=== PATIENT | male | born 1940 | race Caucasian/White ===

== ENCOUNTER → 2017-01-22 | Outpatient (CLI) | payer MEDICARE, OTHER ==
[2017-01-22 13:02] LABS: ANION GAP 13 (5-19); BLOOD UREA NITROGEN 19 mg/dL (7-20); CALCIUM 9.8 mg/dL (8.4-10.2); CARBON DIOXIDE 23 mmol/L (22-30); CHLORIDE 101 mmol/L (98-107); CREATININE RESULT 0.88 mg/dL (0.52-1.25); GLUCOSE 125 mg/dL (75-110); POTASSIUM 4.4 mmol/L (3.6-5.0); SODIUM 137.4 mmol/L (137-145)
[2017-01-22 13:36] LABS: APPEARANCE,URINE CLEAR; BILIRUBIN,URINE NEGATIVE (NEGATIVE); GLUCOSE, URINE NEGATIVE (NEGATIVE); KETONES,URINE NEGATIVE (NEGATIVE)
[2017-01-22 13:37] LABS: LEUKOCYTE ESTERASE,URINE NEGATIVE (NEGATIVE); NITRITE,URINE NEGATIVE (NEGATIVE); PROTEIN,URINE NEGATIVE (NEGATIVE); URINE SPECIFIC GRAVITY 1.005; UROBILINOGEN,URINE NEGATIVE mg/dL (<2.0)
[2017-01-22 13:41] LABS: RBC,URINE 0-1 /HPF; WBC,URINE 0-1 /HPF
[2017-01-23 11:38] LABS: CREATININE URINE 30.3 mg/dL (Not Estab.)
== END ==
LOC: OD 11:36
PROVIDERS: ATTEND Internal Medicine Nephrology
DX: R80.9 Proteinuria, unspecified (principal); E11.9 Type 2 diabetes mellitus without complications; I10 Essential (primary) hypertension
CPT/HCPCS: 36415; 80048; 81001; 82570; 84156

== ENCOUNTER 2017-05-03 10:53 | Day surgery (SDC) | payer MEDICARE, OTHER ==
[~2017-05-03 10:53] MED LIST: PROPOFOL INJ 200 MG/20 ML VIAL IV ONE
[2017-05-03 12:48] VITALS: BP 116/89
--- NOTE | 2017-05-03 14:44 | Operative Report ---
Operative Report DATE OF SURGERY: 05/03/17 Operative Report: The risks, benefits and alternatives are discussed with the patient in detail including the risk of bleeding , perforation requiring surgery, are explained to the patient in detail and informed consent is obtained Time out is called and Propofol is provided patient is taken back to the endoscopy suite A rectal exam is done which did not show any masses or fissures an olympus videoscope is inserted into patient's rectum and carefully guided to the cecum the cecum is identified by the ileocecal valve and appendiceal orifice the scope is then carefully withdrawn, patient had a good prep and photodocumentation is obtained the various segments of the colon including the ascending colon, hepatic flexure , transverse colon, splenic flexure, descending colon and into the rectosigmoid portions of the colon retroflexion is performed PREOPERATIVE DIAGNOSIS: colorectal cancer screening POSTOPERATIVE DIAGNOSIS: diverticulosis. Internal hemorrhoids. sessile polyp in the descending colon polyp, s/p attempted snare polypectomy but ended up being ablated in situ. no tissue is retrieved OPERATION: Colonoscopy with snare polypectomy SURGEON: DARCY FATIMA ANESTHESIA: LMAC TISSUE REMOVED OR ALTERED: none retrived COMPLICATIONS: none ESTIMATED BLOOD LOSS: none INTRAOPERATIVE FINDINGS: as noted above PROCEDURE: Patient tolerated the procedure well no post procedure complications patient is discharged in good condition discharge date 05/03/17 Discharge diet : regular Discharge activity: regular 2-3 week follow up to discuss findings 5 year surveillance colonoscopy patient is instructed to call the office or proceed to the ED if there are any issues or concerns
== END 2017-05-03 12:55 | disposition home or self-care (01) ==
LOC: END 10:53
PROVIDERS: ATTEND Internal Medicine Gastroenterology
PROC: 0DBH8ZX Excision of Cecum, Via Natural or Artificial Opening Endoscopic, Diagnostic (ICD-10-PCS; principal; 2017-05-03 13:30)
DX: Z12.11 Encounter for screening for malignant neoplasm of colon (principal); K57.30 Diverticulosis of large intestine without perforation or abscess without bleeding; K64.8 Other hemorrhoids; D12.4 Benign neoplasm of descending colon; I10 Essential (primary) hypertension; E11.9 Type 2 diabetes mellitus without complications; Z79.899 Other long term (current) drug therapy; Z79.84 Long term (current) use of oral hypoglycemic drugs
CPT/HCPCS: 45385; 82962; J2704; 810

== ENCOUNTER → 2017-07-07 | Outpatient (CLI) | payer MEDICARE, OTHER ==
[2017-07-07 16:45] LABS: HEMOGLOBIN 17.3 g/dL (13.5-17.0); HGB HCT DIFFERENCE -0.1; MEAN CORPUSCULAR HEMOGLOBIN 29.3 pg (27.0-33.4); MEAN CORPUSCULAR HGB CONC 33.3 g/dL (32.0-36.0); MEAN CORPUSCULAR VOLUME 88 fl (80-97); WHITE BLOOD COUNT 11.4 10^3/uL (4.0-10.5)
[2017-07-09 10:18] LABS: PROSTATE SPECIFIC ANTIGEN 0.5 ng/mL (0.0-4.0); PSA FREE 0.14 ng/mL
== END ==
LOC: OD 15:28
PROVIDERS: ATTEND Urology
DX: E29.1 Testicular hypofunction (principal); N52.9 Male erectile dysfunction, unspecified
CPT/HCPCS: 36415; 84154; 84402; 84403; 85027

== ENCOUNTER → 2017-07-20 | Outpatient (CLI) | payer MEDICARE, OTHER ==
[2017-07-20 15:25] LABS: APPEARANCE,URINE CLEAR; BILIRUBIN,URINE NEGATIVE (NEGATIVE); GLUCOSE, URINE NEGATIVE (NEGATIVE); KETONES,URINE NEGATIVE (NEGATIVE); LEUKOCYTE ESTERASE,URINE NEGATIVE (NEGATIVE); NITRITE,URINE NEGATIVE (NEGATIVE); PROTEIN,URINE 30 mg/dL (NEGATIVE); URINE SPECIFIC GRAVITY 1.004; UROBILINOGEN,URINE NEGATIVE mg/dL (<2.0)
[2017-07-20 15:54] LABS: ANION GAP 13 (5-19); BLOOD UREA NITROGEN 17 mg/dL (7-20); CALCIUM 9.8 mg/dL (8.4-10.2); CARBON DIOXIDE 27 mmol/L (22-30); CHLORIDE 100 mmol/L (98-107); CREATININE RESULT 1.01 mg/dL (0.52-1.25); GLUCOSE 136 mg/dL (75-110); POTASSIUM 4.9 mmol/L (3.6-5.0); SODIUM 140.2 mmol/L (137-145)
[2017-07-20 16:35] LABS: URINE CREATININE 37.6 mg/dL (22-328); URINE PROTEIN 39.3 mg/dL (<12)
== END ==
LOC: OD 13:46
PROVIDERS: ATTEND Internal Medicine Nephrology
DX: R80.9 Proteinuria, unspecified (principal); E11.9 Type 2 diabetes mellitus without complications; I10 Essential (primary) hypertension
CPT/HCPCS: 36415; 80048; 81001; 82570; 84156

== ENCOUNTER → 2017-11-24 | Outpatient (CLI) | payer MEDICARE, OTHER ==
[2017-11-24 15:36] LABS: APPEARANCE,URINE CLEAR; BILIRUBIN,URINE NEGATIVE (NEGATIVE); COLOR,URINE YELLOW; GLUCOSE, URINE NEGATIVE (NEGATIVE); KETONES,URINE NEGATIVE (NEGATIVE); LEUKOCYTE ESTERASE,URINE NEGATIVE (NEGATIVE); NITRITE,URINE NEGATIVE (NEGATIVE); PROTEIN,URINE 100 mg/dL (NEGATIVE); URINE SPECIFIC GRAVITY 1.023; UROBILINOGEN,URINE NEGATIVE mg/dL (<2.0)
[2017-11-24 15:49] LABS: ANION GAP 13 (5-19); BLOOD UREA NITROGEN 23 mg/dL (7-20); CALCIUM 10.2 mg/dL (8.4-10.2); CARBON DIOXIDE 27 mmol/L (22-30); CHLORIDE 102 mmol/L (98-107); GLUCOSE 110 mg/dL (75-110); POTASSIUM 4.6 mmol/L (3.6-5.0); SODIUM 142.3 mmol/L (137-145)
[2017-11-24 15:56] LABS: UR PRO/CREAT RATIO RESULT 0.7 mg/mg (0.0-0.2); URINE CREATININE 151.7 mg/dL (22-328); URINE PROTEIN 106.6 mg/dL (<12)
== END ==
LOC: OD 14:45
PROVIDERS: ATTEND Internal Medicine Nephrology
DX: I10 Essential (primary) hypertension (principal); E11.9 Type 2 diabetes mellitus without complications; R80.9 Proteinuria, unspecified
CPT/HCPCS: 36415; 80048; 81001; 82570; 84156

== ENCOUNTER → 2018-06-17 | Outpatient (CLI) | payer MEDICARE, OTHER ==
[2018-06-17 15:57] LABS: HEMATOCRIT 49.1 % (37.9-51.0); HEMOGLOBIN 16.8 g/dL (13.5-17.0); MEAN CORPUSCULAR HEMOGLOBIN 29.5 pg (27.0-33.4); MEAN CORPUSCULAR HGB CONC 34.2 g/dL (32.0-36.0); MEAN CORPUSCULAR VOLUME 86 fl (80-97); PLATELET COUNT 355 10^3/uL (150-450); RED BLOOD COUNT 5.69 10^6/uL (4.35-5.55); RED CELL DISTRIBUTION WIDTH 13.6 % (11.5-14.0); WHITE BLOOD COUNT 10.7 10^3/uL (4.0-10.5)
[2018-06-17 16:13] LABS: APPEARANCE,URINE SLIGHTLY-CLOUDY; BILIRUBIN,URINE NEGATIVE (NEGATIVE); COLOR,URINE YELLOW; GLUCOSE, URINE NEGATIVE (NEGATIVE); KETONES,URINE NEGATIVE (NEGATIVE); LEUKOCYTE ESTERASE,URINE TRACE (NEGATIVE); NITRITE,URINE NEGATIVE (NEGATIVE); PROTEIN,URINE 100 mg/dL (NEGATIVE)
[2018-06-17 16:17] LABS: ANION GAP 13 (5-19); BLOOD UREA NITROGEN 20 mg/dL (7-20); CALCIUM 9.6 mg/dL (8.4-10.2); CARBON DIOXIDE 27 mmol/L (22-30); CHLORIDE 105 mmol/L (98-107); GLUCOSE 137 mg/dL (75-110); POTASSIUM 4.8 mmol/L (3.6-5.0); SODIUM 144.7 mmol/L (137-145); UR PRO/CREAT RATIO RESULT 0.3 mg/mg (0.0-0.2); URINE CREATININE 180.1 mg/dL (22-328); URINE PROTEIN 56.5 mg/dL (<12)
== END ==
LOC: OD 14:59
PROVIDERS: ATTEND Internal Medicine Nephrology
DX: R80.9 Proteinuria, unspecified (principal); E11.9 Type 2 diabetes mellitus without complications; N18.2 Chronic kidney disease, stage 2 (mild)
CPT/HCPCS: 36415; 80048; 81001; 82570; 84156; 85027

== ENCOUNTER → 2018-12-22 | Outpatient (CLI) | payer MEDICARE, OTHER ==
[2018-12-22 13:03] LABS: HEMATOCRIT 51.2 % (37.9-51.0); HEMOGLOBIN 17.6 g/dL (13.5-17.0); MEAN CORPUSCULAR HEMOGLOBIN 29.4 pg (27.0-33.4); MEAN CORPUSCULAR HGB CONC 34.3 g/dL (32.0-36.0); MEAN CORPUSCULAR VOLUME 86 fl (80-97); PLATELET COUNT 364 10^3/uL (150-450); RED BLOOD COUNT 5.99 10^6/uL (4.35-5.55); RED CELL DISTRIBUTION WIDTH 14.9 % (11.5-14.0); WHITE BLOOD COUNT 10.2 10^3/uL (4.0-10.5)
[2018-12-22 13:11] LABS: APPEARANCE,URINE SLIGHTLY-CLOUDY; BILIRUBIN,URINE NEGATIVE (NEGATIVE); COLOR,URINE YELLOW; GLUCOSE, URINE NEGATIVE (NEGATIVE); KETONES,URINE NEGATIVE (NEGATIVE); LEUKOCYTE ESTERASE,URINE TRACE (NEGATIVE); NITRITE,URINE NEGATIVE (NEGATIVE); PROTEIN,URINE 100 mg/dL (NEGATIVE); URINE SPECIFIC GRAVITY 1.023
[2018-12-22 13:23] LABS: ANION GAP 9 (5-19); BLOOD UREA NITROGEN 19 mg/dL (7-20); CALCIUM 9.6 mg/dL (8.4-10.2); CARBON DIOXIDE 29 mmol/L (22-30); CHLORIDE 102 mmol/L (98-107); GLUCOSE 132 mg/dL (75-110); POTASSIUM 5.2 mmol/L (3.6-5.0); SODIUM 140.4 mmol/L (137-145); URIC ACID 6.4 mg/dL (3.5-8.5)
== END ==
LOC: OD 12:24
PROVIDERS: ATTEND Internal Medicine Nephrology
DX: E11.9 Type 2 diabetes mellitus without complications (principal); R80.9 Proteinuria, unspecified; M10.00 Idiopathic gout, unspecified site; I10 Essential (primary) hypertension
CPT/HCPCS: 36415; 80048; 81001; 84550; 85027

== ENCOUNTER → 2019-06-12 | Outpatient (CLI) | payer MEDICARE, OTHER ==
[2019-06-12 14:23] LABS: HEMATOCRIT 48.7 % (37.9-51.0); HEMOGLOBIN 16.5 g/dL (13.5-17.0); MEAN CORPUSCULAR HEMOGLOBIN 28.9 pg (27.0-33.4); MEAN CORPUSCULAR HGB CONC 33.9 g/dL (32.0-36.0); MEAN CORPUSCULAR VOLUME 85 fl (80-97); PLATELET COUNT 318 10^3/uL (150-450); RED BLOOD COUNT 5.71 10^6/uL (4.35-5.55); RED CELL DISTRIBUTION WIDTH 14.5 % (11.5-14.0); WHITE BLOOD COUNT 10.6 10^3/uL (4.0-10.5)
[2019-06-12 14:32] LABS: APPEARANCE,URINE CLEAR; BILIRUBIN,URINE NEGATIVE (NEGATIVE); COLOR,URINE YELLOW; GLUCOSE, URINE NEGATIVE (NEGATIVE); KETONES,URINE NEGATIVE (NEGATIVE); LEUKOCYTE ESTERASE,URINE NEGATIVE (NEGATIVE); NITRITE,URINE NEGATIVE (NEGATIVE); PROTEIN,URINE 100 mg/dL (NEGATIVE); URINE SPECIFIC GRAVITY 1.018; UROBILINOGEN,URINE NEGATIVE mg/dL (<2.0)
[2019-06-12 14:44] LABS: ANION GAP 9 (5-19); BLOOD UREA NITROGEN 17 mg/dL (7-20); CALCIUM 9.5 mg/dL (8.4-10.2); CARBON DIOXIDE 28 mmol/L (22-30); CHLORIDE 103 mmol/L (98-107); GLUCOSE 133 mg/dL (75-110); POTASSIUM 5.1 mmol/L (3.6-5.0); SODIUM 139.5 mmol/L (137-145)
[2019-06-12 15:11] LABS: UR PRO/CREAT RATIO RESULT 0.5 mg/mg (0.0-0.2); URINE CREATININE 99.2 mg/dL (22-328); URINE PROTEIN 52.2 mg/dL (<12)
== END ==
LOC: OD 13:33
PROVIDERS: ATTEND Internal Medicine Nephrology
DX: E11.9 Type 2 diabetes mellitus without complications (principal); R80.9 Proteinuria, unspecified; M10.00 Idiopathic gout, unspecified site
CPT/HCPCS: 36415; 80048; 81001; 82570; 84156; 85027

== ENCOUNTER → 2020-01-04 | Outpatient (CLI) | payer MEDICARE, OTHER ==
[2020-01-04 11:40] LABS: ABSOLUTE BASOPHILS # (AUTO) 0.1 10^3/uL (0.0-0.2); ABSOLUTE EOSINOPHILS # (AUTO) 0.5 10^3/uL (0.0-0.6); ABSOLUTE LYMPHOCYTES (AUTO) 1.8 10^3/uL (0.5-4.7); ABSOLUTE MONOCYTES (AUTO) 1.4 10^3/uL (0.1-1.4); ABSOLUTE NEUT (AUTO) 8.6 10^3/uL (1.7-8.2); BASOPHILS % (AUTO) 0.6 % (0-2); EOSINOPHILS % (AUTO) 4.1 % (0-6); HEMATOCRIT 48.4 % (37.9-51.0); HEMOGLOBIN 16.2 g/dL (13.5-17.0); LYMPHOCYTES % (AUTO) 14.8 % (13-45); MEAN CORPUSCULAR HEMOGLOBIN 28.7 pg (27.0-33.4); MEAN CORPUSCULAR HGB CONC 33.5 g/dL (32.0-36.0); MEAN CORPUSCULAR VOLUME 86 fl (80-97); MONOCYTES % (AUTO) 11.5 % (3-13); PLATELET COUNT 423 10^3/uL (150-450); RED BLOOD COUNT 5.65 10^6/uL (4.35-5.55); RED CELL DISTRIBUTION WIDTH 13.7 % (11.5-14.0); TOTAL CELLS COUNTED % (AUTO) 100 %; WHITE BLOOD COUNT 12.4 10^3/uL (4.0-10.5)
[2020-01-04 11:47] LABS: APPEARANCE,URINE CLEAR; BILIRUBIN,URINE NEGATIVE (NEGATIVE); COLOR,URINE YELLOW; GLUCOSE, URINE NEGATIVE (NEGATIVE); KETONES,URINE NEGATIVE (NEGATIVE); LEUKOCYTE ESTERASE,URINE NEGATIVE (NEGATIVE); NITRITE,URINE NEGATIVE (NEGATIVE); PROTEIN,URINE 100 mg/dL (NEGATIVE); URINE SPECIFIC GRAVITY 1.019; UROBILINOGEN,URINE NEGATIVE mg/dL (<2.0)
[2020-01-04 12:01] LABS: ALBUMIN 4.4 g/dL (3.5-5.0); ANION GAP 11 (5-19); BLOOD UREA NITROGEN 18 mg/dL (7-20); CALCIUM 9.8 mg/dL (8.4-10.2); CARBON DIOXIDE 29 mmol/L (22-30); CHLORIDE 99 mmol/L (98-107); GLUCOSE 179 mg/dL (75-110); PHOSPHORUS 3.2 mg/dL (2.5-4.5); POTASSIUM 4.9 mmol/L (3.6-5.0)
[2020-01-04 12:24] LABS: UR PRO/CREAT RATIO RESULT 0.3 mg/mg (0.0-0.2); URINE CREATININE 198.6 mg/dL (22-328); URINE PROTEIN 67.9 mg/dL (<12)
== END ==
LOC: OD 10:39
PROVIDERS: ATTEND Internal Medicine Nephrology
DX: R80.9 Proteinuria, unspecified (principal); E11.9 Type 2 diabetes mellitus without complications; I10 Essential (primary) hypertension
CPT/HCPCS: 36415; 80069; 81001; 82570; 84156; 85025

== ENCOUNTER 2020-02-05 01:36 | Inpatient (IN) | payer MEDICARE, OTHER ==
[2020-02-05 01:57] LABS: ABSOLUTE EOSINOPHILS # (AUTO) 0.2 10^3/uL (0.0-0.6); ABSOLUTE MONOCYTES (AUTO) 2.2 10^3/uL (0.1-1.4); BASOPHILS % (AUTO) 0.2 % (0-2); EOSINOPHILS % (AUTO) 0.9 % (0-6); HEMATOCRIT 43.6 % (37.9-51.0); HEMOGLOBIN 14.5 g/dL (13.5-17.0); LYMPHOCYTES % (AUTO) 5.1 % (13-45); MEAN CORPUSCULAR HEMOGLOBIN 28.4 pg (27.0-33.4); MEAN CORPUSCULAR HGB CONC 33.2 g/dL (32.0-36.0); MEAN CORPUSCULAR VOLUME 86 fl (80-97); MONOCYTES % (AUTO) 11.5 % (3-13); PLATELET COUNT 496 10^3/uL (150-450); RED BLOOD COUNT 5.09 10^6/uL (4.35-5.55); RED CELL DISTRIBUTION WIDTH 13.6 % (11.5-14.0); SEGMENTED NEUTROPHILS % (AUTO) 82.3 % (42-78); TOTAL CELLS COUNTED % (AUTO) 100 %; WHITE BLOOD COUNT 19.4 10^3/uL (4.0-10.5)
[2020-02-05] MEDS ORDERED: IPRATROPIUM/ALBUTEROL 0.5-2.5 MG/3 ML AMPUL NEB ONE ×2 (02:04→04:01)
[2020-02-05] MEDS ORDERED: METHYLPREDNISOLONE INJ 125 MG/2 ML SDV IV ONE (02:04)
[2020-02-05] MEDS ORDERED: CEFEPIME 2 GM/D5W RTU 2 GM/50 ML RTUPB IV ONE (02:05)
[2020-02-05] MEDS ORDERED: NORMAL SALINE 1000 ML 1,000 ML IV ONE (02:10)
[2020-02-05 02:13] LABS: ALBUMIN 3.7 g/dL (3.5-5.0); ALKALINE PHOSPHATASE 101 U/L (38-126); ANION GAP 12 (5-19); ASPARTATE AMINO TRANSFERASE 24 U/L (17-59); BILIRUBIN,DIRECT 0.4 mg/dL (0.0-0.4); BILIRUBIN,TOTAL 0.4 mg/dL (0.2-1.3); BLOOD UREA NITROGEN 27 mg/dL (7-20); CALCIUM 9.1 mg/dL (8.4-10.2); CARBON DIOXIDE 25 mmol/L (22-30); CHLORIDE 100 mmol/L (98-107); GLUCOSE 248 mg/dL (75-110); POTASSIUM 4.6 mmol/L (3.6-5.0); TOTAL PROTEIN 7.3 g/dL (6.3-8.2)
[2020-02-05 02:25] LABS: NT PRO BNP 81 pg/mL (<450)
[2020-02-05 02:26] LABS: TROPONIN I < 0.012 ng/mL
--- NOTE | 2020-02-05 02:28 | ER Document Report ---
ED Respiratory Problem - General Chief Complaint: Respiratory Distress Stated Complaint: DIFFICULTY BREATHING Time Seen by Provider: 02/05/20 01:58 Notes: Patient is a 79-year-old male that comes emergency department for chief complaint of difficulty breathing and cough. Patient comes by EMS, oxygen saturation was initially 90% on room air with respiratory distress and respirations in the 40s, patient refused CPAP initially. Patient is not on oxygen at home. Patient states this has been going on for several days but became worse tonight. He saw his primary care provider, was prescribed azithromycin, completed this, but still worsened tonight. Patient is unsure of fever. He states he is vaccinated for influenza and pneumonia. He denies history of COPD, asthma, or CHF. He has a history of hypertension, borderline diabetes, and is on reportedly Xanax and Flexeril/Baclofen. He denies smoking. He states that he took both Xanax and 1 of the muscle relaxers tonight, he is not sure which. TRAVEL OUTSIDE OF THE [place] IN LAST 30 DAYS: No - Related Data Allergies/Adverse Reactions: amoxicillin Allergy (Verified 02/05/20 04:34) hydrocodone [Hydrocodone] Adverse Reaction (Verified 05/03/17 11:10) Vomiting Nitrate Analogues Adverse Reaction (Verified 02/05/20 02:18) Home Medications: Xanax. Flexeril. Zithromax (finished). Losartan. Zofran. Baclofen. Amlodipine. Viagra Past Medical History - General Information source: Patient - Social History Smoking Status: Never Smoker Drug Abuse: None Lives with: Spouse/Significant other Family History: Reviewed & Not Pertinent Patient has suicidal ideation: No Patient has homicidal ideation: No - Past Medical History Cardiac Medical History: Reports: Hx Hypertension Denies: Hx Coronary Artery Disease, Hx Heart Attack Pulmonary Medical History: Reports: Hx Pneumonia Denies: Hx Asthma, Hx Bronchitis, Hx COPD Neurological Medical History: Denies: Hx Cerebrovascular Accident, Hx Seizures Endocrine Medical History: Reports: Hx Diabetes Mellitus Type 2 Musculoskeletal Medical History: Reports Hx Arthritis Past Surgical History: Reports: Hx Oral Surgery, Hx Tonsillectomy - Immunizations Hx Diphtheria, Pertussis, Tetanus Vaccination: Yes Review of Systems - Review of Systems Constitutional: See HPI EENT: No symptoms reported Cardiovascular: No symptoms reported Respiratory: See HPI Gastrointestinal: No symptoms reported Genitourinary: No symptoms reported Male Genitourinary: No symptoms reported Musculoskeletal: No symptoms reported Skin: No symptoms reported Hematologic/Lymphatic: No symptoms reported Neurological/Psychological: No symptoms reported Physical Exam - Vital signs Vitals: Resp BP Pulse Ox 29 H 129/70 H 86 L 02/05/20 01:39 02/05/20 01:39 02/05/20 01:39 - Notes Notes: GENERAL: Patient ill-appearing, flushed, appears drowsy, obvious respiratory distress HEAD: Normocephalic, atraumatic. EYES: Pupils equal, round, and reactive to light. Extraocular movements intact. ENT: Oral mucosa moist, tongue midline. Oropharynx unremarkable. Airway patent. LUNGS: Scattered rhonchi and decreased breath sounds, frequent painful cough, very labored breathing with retractions and notable tachypnea. Respiratory distress. HEART: Tachycardia, normal rhythm, no murmur ABDOMEN: Soft, non-tender. Non-distended. Diastases recti. EXTREMITIES: Moves all 4 extremities spontaneously. No edema, normal radial and dorsalis pedis pulses bilaterally. No cyanosis. BACK: no cervical, thoracic, lumbar midline tenderness. No saddle anesthesia, normal distal neurovascular exam. Moves all extremities in full range of motion. NEUROLOGICAL: Slightly drowsy but still oriented and cooperative. Normal speech. Cranial nerves II through XII grossly intact. PSYCH: Intermittently becomes mildly anxious but otherwise unremarkable SKIN: Flushed Course - Re-evaluation Re-evalutation: Patient with oxygen saturation of 90%, respiratory distress with accessory muscle use and labored breathing, decreased breath sounds and scattered rhonchi, respiratory rate of 45. Patient was placed initially on oxygen, I discussed with patient, he did agree to BiPAP. Given DuoNeb, IV fluids, he will be started on antibiotics for suspected pneumonia, work-up pending, he will be closely reevaluated. Patient reevaluated, breathing is relaxed, he is much more comfortable, oxygen saturation is normal, respiratory rate is now 26. Oxygen saturation 95%. He is not tachycardic anymore, blood pressure is unremarkable. CBC shows leukocytosis with elevation of neutrophils but no bandemia. Chemistry nonspecific with hyperglycemia but no acidosis. Venous blood gas is unremarkable. Chest x-ray low lung volumes but no obvious infection. Troponin and BNP are unremarkable. Patient attempted to get up to urinate and took off the BiPAP, patient immediately desaturated down to the 80s. We replaced the BiPAP and assisted him. Discussed work-up with patient, we will discuss with hospitalist for admission for suspected pneumonia, hypoxia, acute respiratory distress requiring BiPAP. Patient states understanding and agreement. 02/05/[address] Tatum, patient accepted to the [facility] full admission. - Vital Signs Vital signs: Temp Pulse Resp BP Pulse Ox 97.3 F 46 H 118/60 93 02/05/20 05:08 02/05/20 05:57 02/05/20 05:08 02/05/20 05:57 - Laboratory Result Diagrams: 02/05/20 01:40 02/05/20 01:40 Laboratory results interpreted by me: 02/05/20 02/05/20 02/05/20 01:40 01:40 03:40 WBC 19.4 H Plt Count 496 H Lymph % (Auto) 5.1 L Absolute Neuts (auto) 16.0 H Absolute Monos (auto) 2.2 H Seg Neutrophils % 82.3 H BUN 27 H Glucose 248 H Urine Protein 30 H Urine Glucose (UA) >=500 H Discharge - Discharge Clinical Impression: Respiratory distress, Cough, Hypoxia Leukocytosis Qualifiers: Leukocytosis type: unspecified Qualified Code(s): D72.829 - Elevated white blood cell count, unspecified Condition: Stable Disposition: ADMITTED INPATIENT Admitting Provider: Rc (Hospitalist) Unit Admitted: [facility]
--- NOTE | 2020-02-05 02:28 | RADIOLOGY REPORT (SQ) ---
EXAM DESCRIPTION: XR CHEST 1 VIEW COMPLETED DATE/TME: 02/05/2020 01:49 CLINICAL HISTORY: cough, shortness of breath COMPARISON: 03/01/1950 FINDINGS: Single frontal view of the chest. Cardiomediastinal silhouette: Atherosclerotic calcification of the thoracic aorta. Heart is not enlarged. Lungs: No consolidation, pneumothorax, or pleural effusion. Low lung volumes. Elevation the right hemidiaphragm. Bones: Degenerative change of the spine and shoulders. Leads overlie the chest. Upper abdomen: No abnormality identified. IMPRESSION: 1. No acute pulmonary process identified. Low lung volumes.
[2020-02-05 03:10] LABS: VENOUS BLOOD HCO3 26.7 mmol/L (20-32); VENOUS BLOOD PCO2 55.4 mmHg (35-63); VENOUS BLOOD PH 7.3 (7.30-7.42)
[2020-02-05] MEDS ORDERED: VANCOMYCIN HCL INJ 1000 MG VIAL IV ONE (03:20)
[2020-02-05 03:39] LABS: A TYPE INFLUENZA AG NEGATIVE (NEGATIVE); B INFLUENZA AG NEGATIVE (NEGATIVE)
[2020-02-05] MEDS ORDERED: IPRATROPIUM/ALBUTEROL 0.5-2.5 MG/3 ML AMPUL NEB PRN (04:00)
[2020-02-05] MEDS ORDERED: ACETAMINOPHEN 325 MG TABLET PO PRN (04:00)
[2020-02-05] MEDS ORDERED: ONDANSETRON HCL INJ/PF 4 MG/2 ML SDV IV PRN (04:11)
[2020-02-05] MEDS ORDERED: MORPHINE SULFATE 10 MG/ML INJ IV PRN (04:14)
[2020-02-05] MEDS ORDERED: VANCOMYCIN HCL 0 MG in DEXTROSE 5%-WATER 250 ML IV NR (04:15)
--- NOTE | 2020-02-05 04:18 | PDOC H&P ---
History of Present Illness Admission Date/PCP: 02/05/20 04:02 Nitin VELÁSQUEZ MD Patient complains of: Shortness of breath History of Present Illness: ALYSSIA GUTIÉRREZ is a 79 year old male with a history of chronic kidney disease. There is a history of hypertension and possible diabetes. He called EMS for increasing shortness of breath. The patient was transported to the emergency department on BiPAP. He was given IV steroids and nebulizer treatments. He has a productive cough. Despite no obvious sign of pneumonia on chest x-ray clinically there is a very high suspicion. Evaluation the emergency department revealed an elevated white blood cell count at 19,000. Glucose was 248. BUN was elevated at 27. The patient will be admitted to the hospital service. Past Medical History Cardiac Medical History: Reports: Hypertension Denies: Coronary Artery Disease, Myocardial Infarction Pulmonary Medical History: Reports: Pneumonia Denies: Asthma, Bronchitis, Chronic Obstructive Pulmonary Disease (COPD) Neurological Medical History: Denies: Seizures Endocrine Medical History: Reports: Diabetes Mellitus Type 2 Musculoskeltal Medical History: Reports: Arthritis Hematology: Denies: Anemia Past Surgical History Past Surgical History: Reports: Orthopedic Surgery, Tonsillectomy Social History Information Source: Patient Lives with: Spouse/Significant other Smoking Status: Former Smoker Electronic Cigarette use?: No Frequency of Alcohol Use: Rare Hx Recreational Drug Use: No Hx Prescription Drug Abuse: No Family History Family History: DM, Other Parental Family History Reviewed: Yes Children Family History Reviewed: Yes Sibling(s) Family History Reviewed.: Yes Medication/Allergy Home Medications: Losartan Potassium [Cozaar 100 mg Tablet] 100 mg PO DAILY 08/04/14 Metformin HCl 850 mg PO BID 08/04/14 Amlodipine Besylate [Norvasc 5 mg Tablet] 5 mg PO DAILY 04/29/17 Allergies/Adverse Reactions: amoxicillin Allergy (Verified 02/05/20 04:34) hydrocodone [Hydrocodone] Adverse Reaction (Verified 05/03/17 11:10) Vomiting Nitrate Analogues Adverse Reaction (Verified 02/05/20 02:18) Review of Systems ROS unobtainable: Other - Somewhat limited due to BiPAP and tachypnea All systems: reviewed and no additional remarkable complaints except as stated Respiratory: PRESENT: cough, dyspnea, sputum Physical Exam Vital Signs: Temp Pulse Resp BP Pulse Ox 98.9 F 40 H 94 02/05/20 02:02 02/05/20 02:10 02/05/20 02:47 Intake & Output 02/03/20 02/04/20 02/05/20 05:59 06:59 06:59 Intake Total 1050 Balance 1050 General appearance: PRESENT: cooperative, severe distress, well-developed Head exam: PRESENT: atraumatic, normocephalic Eye exam: PRESENT: conjunctiva pink, EOMI. ABSENT: scleral icterus Ear exam: PRESENT: normal external ear exam. ABSENT: bleeding, drainage Mouth exam: PRESENT: dry mucosa, tongue midline Neck exam: ABSENT: carotid bruit, JVD, lymphadenopathy Respiratory exam: PRESENT: prolonged expiratory phas, rhonchi, symmetrical, tachypnea, wheezes. ABSENT: rales Cardiovascular exam: PRESENT: RRR, +S1, +S2, systolic murmur GI/Abdominal exam: PRESENT: distended, normal bowel sounds, soft. ABSENT: tend erness Rectal exam: PRESENT: deferred Gentrourinary exam: ABSENT: indwelling catheter Extremities exam: ABSENT: pedal edema Musculoskeletal exam: PRESENT: ambulatory, full ROM, normal inspection. ABSENT: deformity Neurological exam: PRESENT: alert, awake, oriented to person, oriented to place, oriented to time, oriented to situation, CN II-XII grossly intact. ABSENT: mot or sensory deficit Psychiatric exam: PRESENT: appropriate affect. ABSENT: agitated, anxious Focused psych exam: ABSENT: delusional, restlessness Skin exam: PRESENT: dry, normal color, warm. ABSENT: rash Results Laboratory Results: 02/05/20 01:40 02/05/20 01:40 02/05/20 02/05/20 02/05/20 01:40 01:40 02:00 WBC 19.4 H RBC 5.09 Hgb 14.5 Hct 43.6 MCV 86 MCH 28.4 MCHC 33.2 RDW 13.6 Plt Count 496 H Seg Neutrophils % 82.3 H VBG pH VBG pCO2 VBG HCO3 VBG Base Excess Sodium 137.3 Potassium 4.6 Chloride 100 Carbon Dioxide 25 Anion Gap 12 BUN 27 H Creatinine 1.05 Est GFR ( Amer) > 60 Glucose 248 H Lactic Acid 1.0 Calcium 9.1 Total Bilirubin 0.4 AST 24 Alkaline Phosphatase 101 Total Protein 7.3 Albumin 3.7 02/05/20 02:10 WBC RBC Hgb Hct MCV MCH MCHC RDW Plt Count Seg Neutrophils % VBG pH 7.30 VBG pCO2 55.4 VBG HCO3 26.7 VBG Base Excess -1.0 Sodium Potassium Chloride Carbon Dioxide Anion Gap BUN Creatinine Est GFR ( Amer) Glucose Lactic Acid Calcium Total Bilirubin AST Alkaline Phosphatase Total Protein Albumin 02/05/20 01:40 Troponin I < 0.012 NT-Pro-B Natriuret Pep 81 Impressions: Chest X-Ray 02/05/20 01:49 IMPRESSION: 1. No acute pulmonary process identified. Low lung volumes. Assessment and Plan - Diagnosis (1) Pneumonia Qualifiers: Pneumonia type: due to unspecified organism Laterality: unspecified laterality Lung location: unspecified part of lung Qualified Code(s): J18.9 - Pneumonia, unspecified organism Is this a current diagnosis for this admission?: Yes Plan: 02/05/2020 Despite a negative chest x-ray the patient has many clinical features of pneumonia. We will administer IV antibiotics and monitor his white blood cell count. I have asked for a sputum specimen which would be very helpful with regard to antibiotic selection. (2) Acute respiratory failure with hypoxia Is this a current diagnosis for this admission?: Yes Plan: 02/05/2020 Continue BiPAP. Wean oxygen as tolerated. (3) Hypertension Qualifiers: Hypertension type: essential hypertension Qualified Code(s): I10 - Essential (primary) hypertension Is this a current diagnosis for this admission?: Yes Plan: 02/05/2020 Continue baseline medications and monitor blood pressure closely (4) Cough Is this a current diagnosis for this admission?: Yes Plan: 02/05/2020 Cough suppressant sent nebulizer treatments (5) Leukocytosis Qualifiers: Leukocytosis type: unspecified Qualified Code(s): D72.829 - Elevated white blood cell count, unspecified Is this a current diagnosis for this admission?: Yes Plan: 02/05/2020 Secondary to pneumonia. Monitor with serial CBCs. (6) COPD exacerbation Is this a current diagnosis for this admission?: Yes Plan: 02/05/2020 The patient is a former smoker and still smokes an occasional cigar. I have a high suspicion for underlying COPD. He will have scheduled and as needed nebulizer treatments. I have ordered systemic steroids in addition to the antibiotics. Continue BiPAP and wean as tolerated. - Time Time Spent with patient: 35 or more minutes Smoking Cessation Education: 3 to 10 minutes Medications reviewed and adjusted accordingly: Yes Anticipated discharge: Home - Inpatient Certification Based on my medical assessment, after consideration of the patient's comorbidities, presenting symptoms, or acuity I expect that the services needed warrant INPATIENT care.: Yes I certify that my determination is in accordance with my understanding of Medicare's requirements for reasonable and necessary INPATIENT services [42 CFR 412.3e].: Yes Medical Necessity: Need for Pain Control, Need for IV Antibiotics, Other - BiPAP 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
[2020-02-05 04:34] LABS: APPEARANCE,URINE SLIGHTLY-CLOUDY; BILIRUBIN,URINE NEGATIVE (NEGATIVE); COLOR,URINE YELLOW; GLUCOSE, URINE >=500 mg/dL (NEGATIVE); KETONES,URINE NEGATIVE (NEGATIVE); LEUKOCYTE ESTERASE,URINE NEGATIVE (NEGATIVE); NITRITE,URINE NEGATIVE (NEGATIVE); PROTEIN,URINE 30 mg/dL (NEGATIVE); URIC ACID CRYSTALS,URINE FEW /HPF; URINE SPECIFIC GRAVITY 1.022; UROBILINOGEN,URINE NEGATIVE mg/dL (<2.0)
[2020-02-05] MEDS: HEPARIN SOD (PORCINE) 5,000 UNIT/ML 1 ML VIAL SUBCUT SCH ×3 (05:27→22:31)
[2020-02-05] MEDS: PANTOPRAZOLE SODIUM 20 MG TABLET.DR PO SCH (05:28)
[2020-02-05] MEDS: METHYLPREDNISOLONE INJ 40 MG/1 ML SDV IV SCH ×3 (05:28→22:32)
--- NOTE | 2020-02-05 06:23 | EKG REPORT ---
SEVERITY:- ABNORMAL ECG - SINUS TACHYCARDIA RIGHT BUNDLE BRANCH BLOCK : Confirmed by: Jj Fierro MD 05-Feb-2020 06:22:31
[2020-02-05] MEDS: IPRATROPIUM/ALBUTEROL 0.5-2.5 MG/3 ML AMPUL NEB SCH ×3 (07:46→20:48)
[2020-02-05] MEDS: BUDESONIDE NEB 0.5 MG/2 ML AMPUL NEB SCH ×2 (07:46→20:48)
[2020-02-05] MEDS: NORMAL SALINE 1000 ML 1,000 ML IV PRN ×2 (09:06→17:47)
[2020-02-05] MEDS: CEFEPIME 1 GM/D5W RTU 1 GM/50 ML RTUPB IV SCH ×2 (09:07→22:32)
[2020-02-05] MEDS: AMLODIPINE BESYLATE 5 MG TABLET PO SCH (09:18)
[2020-02-05] MEDS: GUAIFENESIN 600 MG TABLET.SA PO SCH ×2 (09:18→22:32)
[2020-02-05] MEDS: LOSARTAN POTASSIUM 50 MG TABLET PO SCH (09:18)
[2020-02-05] MEDS: VANCOMYCIN HCL 1,000 MG in DEXTROSE 5%-WATER 250 ML IV SCH (17:46)
[2020-02-06] MEDS: IPRATROPIUM/ALBUTEROL 0.5-2.5 MG/3 ML AMPUL NEB SCH ×4 (01:52→20:22)
[2020-02-06] MEDS ORDERED: DEXTROSE 40% GEL 15 GM TUBE X 2 PO PRN (05:00)
[2020-02-06] MEDS ORDERED: DEXTROSE 50%-WATER SYRINGE 12.5 GM/25 ML DOSE IV PRN (05:00)
[2020-02-06] MEDS ORDERED: GLUCAGON,HUMAN RECOMB 1 MG INJ IM PRN (05:00)
[2020-02-06] MEDS ORDERED: DEXTROSE 40% GEL 15 GM TUBE PO PRN (05:00)
[2020-02-06] MEDS ORDERED: DEXTROSE 50%-WATER SYRINGE 25 GM/50 ML DOSE IV PRN (05:00)
[2020-02-06] MEDS: HEPARIN SOD (PORCINE) 5,000 UNIT/ML 1 ML VIAL SUBCUT SCH ×3 (05:02→21:49)
[2020-02-06] MEDS: METHYLPREDNISOLONE INJ 40 MG/1 ML SDV IV SCH ×3 (05:06→21:48)
[2020-02-06] MEDS: NORMAL SALINE 1000 ML 1,000 ML IV PRN ×2 (05:06→20:44)
[2020-02-06] MEDS: VANCOMYCIN HCL 1,000 MG in DEXTROSE 5%-WATER 250 ML IV SCH ×2 (05:06→17:29)
[2020-02-06] MEDS: PANTOPRAZOLE SODIUM 20 MG TABLET.DR PO SCH (05:09)
[2020-02-06 05:37] LABS: HEMOGLOBIN 13.6 g/dL (13.5-17.0); MEAN CORPUSCULAR HEMOGLOBIN 28.9 pg (27.0-33.4); MEAN CORPUSCULAR HGB CONC 33.9 g/dL (32.0-36.0); MEAN CORPUSCULAR VOLUME 85 fl (80-97); PLATELET COUNT 440 10^3/uL (150-450); RED CELL DISTRIBUTION WIDTH 13.9 % (11.5-14.0); WHITE BLOOD COUNT 15.5 10^3/uL (4.0-10.5)
[2020-02-06 06:05] LABS: ANION GAP 13 (5-19); BLOOD UREA NITROGEN 28 mg/dL (7-20); CARBON DIOXIDE 22 mmol/L (22-30); CHLORIDE 104 mmol/L (98-107); GLUCOSE 215 mg/dL (75-110); PHOSPHORUS 3.5 mg/dL (2.5-4.5); POTASSIUM 4.7 mmol/L (3.6-5.0)
[2020-02-06 06:26] LABS: ABSOLUTE LYMPHOCYTES# (MANUAL) 0.2 10^3/uL (0.5-4.7); ABSOLUTE MONOCYTES # (MANUAL) 1.2 10^3/uL (0.1-1.4); BASOPHILS % (MANUAL) 0 % (0-2); EOSINOPHILS % (MANUAL) 0 % (0-6); LYMPHOCYTES % (MANUAL) 1 % (13-45); MONOCYTES % (MANUAL) 8 % (3-13); SEGMENTED NEUTROPHILS % (MAN) 91 % (42-78); TOTAL CELLS COUNTED 100
[2020-02-06 06:27] LABS: PLATELET COMMENT ADEQUATE; RBC MORPHOLOGY COMMENT NORMO-CYTIC/CHROMIC
[2020-02-06] MEDS: BUDESONIDE NEB 0.5 MG/2 ML AMPUL NEB SCH ×2 (07:53→20:22)
[2020-02-06] MEDS: INSULIN LISPRO 100 UNIT/ML 3 ML VIAL SUBCUT SCH ×3 (08:15→17:26)
[2020-02-06] MEDS: LOSARTAN POTASSIUM 50 MG TABLET PO SCH (09:17)
[2020-02-06] MEDS: GUAIFENESIN 600 MG TABLET.SA PO SCH ×2 (09:17→21:50)
[2020-02-06] MEDS: CEFEPIME 1 GM/D5W RTU 1 GM/50 ML RTUPB IV SCH ×2 (09:18→21:48)
[2020-02-06] MEDS: AMLODIPINE BESYLATE 5 MG TABLET PO SCH (09:18)
--- NOTE | 2020-02-06 09:56 | RADIOLOGY REPORT (SQ) ---
EXAM DESCRIPTION: CHEST SINGLE VIEW COMPLETED DATE/TIME: 02/06/2020 8:05 am REASON FOR STUDY: Pneumonia COMPARISON: Chest films 02/05/2020, 03/01/2015 EXAM PARAMETERS: NUMBER OF VIEWS: One view. TECHNIQUE: Single frontal radiographic view of the chest acquired. RADIATION DOSE: NA LIMITATIONS: None. FINDINGS: LUNGS AND PLEURA: Chronic elevation right hemidiaphragm. Right lung grossly clear. There is left retrocardiac airspace disease atelectasis versus pneumonia. No left pleural effusion o r pneumothorax. MEDIASTINUM AND HILAR STRUCTURES: No masses. Contour normal. HEART AND VASCULAR STRUCTURES: Heart normal in size. Normal vasculature. BONES: No acute findings. HARDWARE: None in the chest. OTHER: No other significant finding. IMPRESSION: Chronic elevation right hemidiaphragm Minimal left retrocardiac airspace disease atelectasis versus pneumonia TECHNICAL DOCUMENTATION: JOB ID: [id number] 2010 [employer]- All Rights Reserved Reading location - IP/workstation name: [email or web address]
--- NOTE | 2020-02-06 19:45 | PDOC PROGRESS REPORT ---
Subjective Progress Note for:: 02/06/20 Subjective:: No adverse events overnight. He was sitting up in bed listening to the [employer] [facility] on his [facility]. He still had the BiPAP mask on. He looked very comfortable and so I asked him if he wanted to take the mask off but he said that he was fine with it on and that it was fairly comfortable. Reason For Visit: PNEUMONIA Physical Exam Vital Signs: Temp Pulse Resp BP Pulse Ox 97.9 F 73 28 H 114/61 96 02/06/20 15:38 02/06/20 15:38 02/06/20 15:38 02/06/20 15:38 02/06/20 16:12 Pulse Oximeter Continuous Start: 02/05/20 04:00 Freq: RTQ4 Status: Active Protocol: Document 02/06/20 16:12 NSM (Rec: 02/06/20 19:00 NSM [email or web address]) Pulse Oximetry Assessment Oxygen Saturation (92-100) 96 Oxygen Delivery Method Nasal Cannula Equipment Usage Equipment Standby Continuous SpO2 Machine # 3 Pulse Oximeter Continuous Start: 02/05/20 04:03 Freq: RTQ4 Status: Complete Protocol: Document 02/05/20 07:47 NSC (Rec: 02/05/20 08:04 NSC [email or web address]) Pulse Oximetry Assessment Oxygen Saturation (92-100) 95 Oxygen Delivery Method Bi-pap Fraction of Inspired Oxygen (FIO2) 40 Equipment Usage Equipment in Use Continuous SpO2 Machine # 4 Intake & Output 02/05/20 02/06/20 02/07/20 06:59 06:59 06:59 Intake Total 1050 3090 260 Output Total 0 300 900 Balance 1050 2790 -640 Weight 99.4 kg 102.2 kg General appearance: PRESENT: no acute distress, cooperative, disheveled Respiratory exam: PRESENT: clear to auscultation vicki - But somewhat loud due to the BiPAP, symmetrical, unlabored. ABSENT: accessory muscle use, chest wall tenderness, crackles, prolonged expiratory phas, retraction, rhonchi, tachypnea, wheezes Cardiovascular exam: PRESENT: RRR, +S1, +S2 Pulses: PRESENT: normal carotid pulses Vascular exam: PRESENT: normal capillary refill GI/Abdominal exam: PRESENT: normal bowel sounds, soft. ABSENT: distended, guarding, rebound, tenderness Extremities exam: ABSENT: clubbing, pedal edema Musculoskeletal exam: PRESENT: normal inspection. ABSENT: deformity Neurological exam: PRESENT: alert, awake, oriented to person, oriented to place, oriented to situation Psychiatric exam: PRESENT: appropriate affect, normal mood Skin exam: PRESENT: dry, warm Results Laboratory Results: 02/06/20 04:04 02/06/20 04:04 02/06/20 02/06/20 04:04 04:04 WBC 15.5 H RBC 4.70 Hgb 13.6 Hct 40.0 MCV 85 MCH 28.9 MCHC 33.9 RDW 13.9 Plt Count 440 Seg Neutrophils % Not Reportable Sodium 138.7 Potassium 4.7 Chloride 104 Carbon Dioxide 22 Anion Gap 13 BUN 28 H Creatinine 0.62 Est GFR ( Amer) > 60 Glucose 215 H Calcium 9.0 Phosphorus 3.5 Magnesium 2.5 H 02/05/20 01:40 Troponin I < 0.012 NT-Pro-B Natriuret Pep 81 Impressions: Chest X-Ray 02/06/20 06:00 IMPRESSION: Chronic elevation right hemidiaphragm Minimal left retrocardiac airspace disease atelectasis versus pneumonia Assessment and Plan - Diagnosis (1) Acute respiratory failure with hypoxia Is this a current diagnosis for this admission?: Yes Plan: Offered to take him off BiPAP and he refused, but I recommended that he try to take it off in a little while and put on nasal cannula and spent several hours off of it if he could tolerate it, which I believe that he will be able to do. (2) COPD exacerbation Is this a current diagnosis for this admission?: Yes Plan: Continue steroids, antibiotics, bronchodilators. Will hope to de-escalate to steroids soon. (3) Pneumonia Qualifiers: Pneumonia type: due to unspecified organism Laterality: unspecified laterality Lung location: unspecified part of lung Qualified Code(s): J18.9 - Pneumonia, unspecified organism Is this a current diagnosis for this admission?: Yes Plan: Continue current antibiotics, cultures pending - Time Time Spent with patient: 15-24 minutes
[2020-02-07] MEDS: IPRATROPIUM/ALBUTEROL 0.5-2.5 MG/3 ML AMPUL NEB SCH ×4 (02:25→20:07)
[2020-02-07] MEDS: VANCOMYCIN HCL 1,000 MG in DEXTROSE 5%-WATER 250 ML IV SCH ×2 (05:11→17:52)
[2020-02-07] MEDS: METHYLPREDNISOLONE INJ 40 MG/1 ML SDV IV SCH ×2 (05:11→21:20)
[2020-02-07] MEDS: PANTOPRAZOLE SODIUM 20 MG TABLET.DR PO SCH (05:11)
[2020-02-07] MEDS: NORMAL SALINE 1000 ML 1,000 ML IV PRN (05:12)
[2020-02-07] MEDS: HEPARIN SOD (PORCINE) 5,000 UNIT/ML 1 ML VIAL SUBCUT SCH ×3 (05:19→21:21)
[2020-02-07] MEDS: INSULIN LISPRO 100 UNIT/ML 3 ML VIAL SUBCUT SCH ×3 (07:49→16:24)
[2020-02-07] MEDS: BUDESONIDE NEB 0.5 MG/2 ML AMPUL NEB SCH ×2 (08:18→20:05)
[2020-02-07] MEDS: AMLODIPINE BESYLATE 5 MG TABLET PO SCH (09:28)
[2020-02-07] MEDS: LOSARTAN POTASSIUM 50 MG TABLET PO SCH (09:28)
[2020-02-07] MEDS: CEFEPIME 1 GM/D5W RTU 1 GM/50 ML RTUPB IV SCH ×2 (09:33→21:21)
[2020-02-07] MEDS: GUAIFENESIN 600 MG TABLET.SA PO SCH ×2 (09:33→21:20)
--- NOTE | 2020-02-07 18:48 | PDOC PROGRESS REPORT ---
Subjective Progress Note for:: 02/07/20 Subjective:: No adverse events overnight. No new complaints. He has been breathing fine off of BiPAP. He still little bit of short of breath at rest. No fevers. Reason For Visit: PNEUMONIA Physical Exam Vital Signs: Temp Pulse Resp BP Pulse Ox 97.7 F 67 20 159/76 H 95 02/07/20 17:59 02/07/20 17:59 02/07/20 17:59 02/07/20 17:59 02/07/20 17:59 Pulse Oximeter Continuous Start: 02/05/20 04:00 Freq: RTQ4 Status: Active Protocol: Document 02/07/20 08:20 [facility] [place] (Rec: 02/07/20 08:41 [facility] [id number]) Pulse Oximetry Assessment Oxygen Saturation (92-100) 92 Oxygen Flow Rate (L/min) 2 Oxygen Delivery Method Nasal Cannula Fraction of Inspired Oxygen (FIO2) 28 Equipment Usage Equipment in Use Continuous Pulse Oximeter 24 Hour Charge Charge Now Continuous SpO2 Machine # 3 Pulse Oximeter Continuous Start: 02/05/20 04:03 Freq: RTQ4 Status: Complete Protocol: Document 02/05/20 07:47 [facility] [place] (Rec: 02/05/20 08:04 [facility] [id number]) Pulse Oximetry Assessment Oxygen Saturation (92-100) 95 Oxygen Delivery Method Bi-pap Fraction of Inspired Oxygen (FIO2) 40 Equipment Usage Equipment in Use Continuous SpO2 Machine # 4 Intake & Output 02/06/20 02/07/20 02/08/20 06:59 06:59 06:59 Intake Total 3090 2860 1050 Output Total 300 1400 Balance 2790 1460 1050 Weight 102.2 kg 104.3 kg General appearance: PRESENT: no acute distress, cooperative, disheveled Respiratory exam: PRESENT: Faint wheezes on the left side, unlabored. ABSENT: accessory muscle use, chest wall tenderness, crackles, prolonged expiratory phas, retraction, rhonchi, tachypnea Cardiovascular exam: PRESENT: RRR, +S1, +S2 Pulses: PRESENT: normal carotid pulses Vascular exam: PRESENT: normal capillary refill GI/Abdominal exam: PRESENT: normal bowel sounds, soft. ABSENT: distended, guarding, rebound, tenderness Extremities exam: ABSENT: clubbing, pedal edema Musculoskeletal exam: PRESENT: normal inspection. ABSENT: deformity Neurological exam: PRESENT: alert, awake, oriented to person, oriented to place, oriented to situation Psychiatric exam: PRESENT: appropriate affect, normal mood Skin exam: PRESENT: dry, warm Results Laboratory Results: 02/06/20 04:04 02/07/20 17:47 02/07/20 17:47 Creatinine 0.64 Est GFR ( Amer) > 60 02/05/20 03:40 Sputum Gram Stain - Final 02/05/20 01:40 Troponin I < 0.012 NT-Pro-B Natriuret Pep 81 Impressions: Chest X-Ray 02/06/20 06:00 IMPRESSION: Chronic elevation right hemidiaphragm Minimal left retrocardiac airspace disease atelectasis versus pneumonia Assessment and Plan - Diagnosis (1) Acute respiratory failure with hypoxia Is this a current diagnosis for this admission?: Yes Plan: Currently stable on 3 L per nasal cannula, will continue to wean as tolerated (2) COPD exacerbation Is this a current diagnosis for this admission?: Yes Plan: He is doing better, will de-escalate steroids, continue bronchodilators and antibiotics (3) Pneumonia Qualifiers: Pneumonia type: due to unspecified organism Laterality: unspecified laterality Lung location: unspecified part of lung Qualified Code(s): J18.9 - Pneumonia, unspecified organism Is this a current diagnosis for this admission?: Yes Plan: Continue current antibiotics, cultures pending - Time Time Spent with patient: 15-24 minutes
[2020-02-07 18:54] LABS: VANCOMYCIN,TROUGH 8.3 ug/mL (5.0-20.0)
[2020-02-08] MEDS: VANCOMYCIN HCL 1,000 MG in DEXTROSE 5%-WATER 250 ML IV SCH ×2 (02:13→10:24)
[2020-02-08] MEDS: IPRATROPIUM/ALBUTEROL 0.5-2.5 MG/3 ML AMPUL NEB SCH ×3 (02:33→13:35)
[2020-02-08] MEDS: HEPARIN SOD (PORCINE) 5,000 UNIT/ML 1 ML VIAL SUBCUT SCH ×2 (05:27→14:15)
[2020-02-08] MEDS: PANTOPRAZOLE SODIUM 20 MG TABLET.DR PO SCH (05:27)
[2020-02-08] MEDS: INSULIN LISPRO 100 UNIT/ML 3 ML VIAL SUBCUT SCH ×2 (07:54→11:57)
[2020-02-08] MEDS: BUDESONIDE NEB 0.5 MG/2 ML AMPUL NEB SCH (08:31)
[2020-02-08] MEDS: CEFEPIME 1 GM/D5W RTU 1 GM/50 ML RTUPB IV SCH (09:27)
[2020-02-08] MEDS: METHYLPREDNISOLONE INJ 40 MG/1 ML SDV IV SCH (09:27)
[2020-02-08] MEDS: AMLODIPINE BESYLATE 5 MG TABLET PO SCH (09:27)
[2020-02-08] MEDS: GUAIFENESIN 600 MG TABLET.SA PO SCH (09:27)
[2020-02-08] MEDS: LOSARTAN POTASSIUM 50 MG TABLET PO SCH (09:28)
[2020-02-08 13:25] VITALS: BP 112/60
--- NOTE | 2020-02-08 16:44 | PDOC DISCHARGE SUMMARY ---
Impression - Admit/DC Date/PCP Admission Date/Primary Care Provider: 02/05/20 04:02 Nitin VELÁSQUEZ MD Discharge Date: 02/08/20 - Discharge Diagnosis (1) Acute respiratory failure with hypoxia Is this a current diagnosis for this admission?: Yes (2) COPD exacerbation Is this a current diagnosis for this admission?: Yes (3) Pneumonia Is this a current diagnosis for this admission?: Yes - Additional Information Resuscitation Status: Full Code Discharge Diet: Cardiac, Diabetic Discharge Activity: Activity As Tolerated, Balance Activity w/Rest Referrals: NICOLETTE CABELLO PA [NO LOCAL MD] - 02/20/20 10:00 am Prescriptions: Cefdinir 300 mg PO BID #14 capsule Prednisone [Deltasone 20 mg Tablet] 40 mg PO DAILY #10 tablet Codeine Phosphate/Guaifenesin [Guaifenesin-Codeine Syrup] 5 ml PO Q6HP PRN #120 ml PRN Reason: Codeine Phosphate/Guaifenesin [Guaifenesin-Codeine Syrup] 5 ml PO Q6HP PRN #120 ml PRN Reason: Home Medications: Losartan Potassium [Cozaar 100 mg Tablet] 100 mg PO DAILY 08/04/14 Metformin HCl 850 mg PO BID 08/04/14 Amlodipine Besylate [Norvasc 5 mg Tablet] 5 mg PO DAILY 04/29/17 Gemfibrozil [Lopid 600 mg Tablet] 600 mg PO BID 02/05/20 Montelukast Sodium [Singulair 10 mg Tablet] 10 mg PO QHS 02/05/20 Sildenafil Citrate 100 mg PO DAILYP PRN 02/05/20 Cefdinir 300 mg PO BID #14 capsule 02/08/20 Codeine Phosphate/Guaifenesin [Guaifenesin-Codeine Syrup] 5 ml PO Q6HP PRN #120 ml 02/08/20 Codeine Phosphate/Guaifenesin [Guaifenesin-Codeine Syrup] 5 ml PO Q6HP PRN #120 ml 02/08/20 Prednisone [Deltasone 20 mg Tablet] 40 mg PO DAILY #10 tablet 02/08/20 History of Present Illiness History of Present Illness: ALYSSIA GUTIÉRREZ is a 80 year old male with a history of chronic kidney disease. There is a history of hypertension and possible diabetes. He called EMS for increasing shortness of breath. The patient was transported to the emergency department on BiPAP. He was given IV steroids and nebulizer treatments. He has a productive cough. Despite no obvious sign of pneumonia on chest x-ray clinically there is a very high suspicion. Evaluation the emergency department revealed an elevated white blood cell count at 19,000. Glucose was 248. BUN was elevated at 27. The patient will be admitted to the hospital service. Hospital Course Hospital Course: He improved on BiPAP and as the steroids antibiotics kicked in he was able to be gradually weaned over couple of days to room air. Today on room air he was able to ambulate independently. He said he has had a respiratory infection off and on for several weeks. He grew out a Streptococcus pneumonia that had some drug resistances but had good sensitivities to cephalosporins and so third-generation cephalosporin was chosen for another week of treatment. He will get a few more days of prednisone as well. He was also have a lot of cough so I gave him some cough syrup. He will resume his other home medications as previously prescribed. Labs and examination were reassuring he was discharged in stable condition. Physical Exam Vital Signs: Temp Pulse Resp BP Pulse Ox 97.8 F 75 14 112/60 93 02/08/20 13:23 02/08/20 13:35 02/08/20 13:35 02/08/20 13:23 02/08/20 13:35 Pulse Oximeter Continuous Start: 02/05/20 04:00 Freq: RTQ4 Status: Complete Protocol: Document 02/08/20 14:08 [facility] [place] (Rec: 02/08/20 14:09 [facility] [place] [id number]) Pulse Oximetry Assessment Equipment Usage Equipment Discontinued Continuous SpO2 Machine # 3 Additional RT Notes Other pt discharging, equipment pulled Pulse Oximeter Continuous Start: 02/05/20 04:03 Freq: RTQ4 Status: Complete Protocol: Document 02/05/20 07:47 [facility] [place] (Rec: 02/05/20 08:04 [facility] [place] [id number]) Pulse Oximetry Assessment Oxygen Saturation (92-100) 95 Oxygen Delivery Method Bi-pap Fraction of Inspired Oxygen (FIO2) 40 Equipment Usage Equipment in Use Continuous SpO2 Machine # 4 Intake & Output 02/07/20 02/08/20 02/09/20 06:59 06:59 06:59 Intake Total 2860 1600 300 Output Total 1400 800 Balance 1460 800 300 Weight 104.3 kg 99.6 kg General appearance: PRESENT: no acute distress, cooperative, disheveled Respiratory exam: PRESENT: Diminished but clear bilaterally, unlabored. ABSENT: accessory muscle use, chest wall tenderness, crackles, prolonged expiratory phas, retraction, rhonchi, tachypnea is Cardiovascular exam: PRESENT: RRR, +S1, +S2 Pulses: PRESENT: normal carotid pulses Vascular exam: PRESENT: normal capillary refill GI/Abdominal exam: PRESENT: normal bowel sounds, soft. ABSENT: distended, guarding, rebound, tenderness Extremities exam: ABSENT: clubbing, pedal edema Musculoskeletal exam: PRESENT: normal inspection. ABSENT: deformity Neurological exam: PRESENT: alert, awake, oriented to person, oriented to place, oriented to situation Psychiatric exam: PRESENT: appropriate affect, normal mood Skin exam: PRESENT: dry, warm Results Laboratory Results: WBC 15.5 10^3/uL (4.0-10.5) H 02/06/20 04:04 RBC 4.70 10^6/uL (4.35-5.55) 02/06/20 04:04 Hgb 13.6 g/dL (13.5-17.0) 02/06/20 04:04 Hct 40.0 % (37.9-51.0) 02/06/20 04:04 MCV 85 fl (80-97) 02/06/20 04:04 MCH 28.9 pg (27.0-33.4) 02/06/20 04:04 MCHC 33.9 g/dL (32.0-36.0) 02/06/20 04:04 RDW 13.9 % (11.5-14.0) 02/06/20 04:04 Plt Count 440 10^3/uL (150-450) 02/06/20 04:04 Lymph % (Auto) Not Reportable 02/06/20 04:04 [place] % (Auto) Not Reportable 02/06/20 04:04 Eos % (Auto) Not Reportable 02/06/20 04:04 Baso % (Auto) Not Reportable 02/06/20 04:04 Absolute Neuts (auto) Not Reportable 02/06/20 04:04 Absolute Lymphs (auto) Not Reportable 02/06/20 04:04 Absolute Monos (auto) Not Reportable 02/06/20 04:04 Absolute Eos (auto) Not Reportable 02/06/20 04:04 Absolute Basos (auto) Not Reportable 02/06/20 04:04 Total Counted 100 02/06/20 04:04 Seg Neutrophils % Not Reportable 02/06/20 04:04 Seg Neuts % (Manual) 91 % (42-78) H 02/06/20 04:04 Lymphocytes % (Manual) 1 % (13-45) L 02/06/20 04:04 Monocytes % (Manual) 8 % (3-13) 02/06/20 04:04 Eosinophils % (Manual) 0 % (0-6) 02/06/20 04:04 Basophils % (Manual) 0 % (0-2) 02/06/20 04:04 Abs Neuts (Manual) 14.1 10^3/uL (1.7-8.2) H 02/06/20 04:04 Abs Lymphs (Manual) 0.2 10^3/uL (0.5-4.7) L 02/06/20 04:04 Abs Monocytes (Manual) 1.2 10^3/uL (0.1-1.4) 02/06/20 04:04 Absolute Eos (Manual) 0.0 10^3/uL (0.0-0.6) 02/06/20 04:04 Abs Basophils (Manual) 0.0 10^3/uL (0.0-0.2) 02/06/20 04:04 Platelet Comment ADEQUATE 02/06/20 04:04 RBC Morph Comment NORMO-CYTIC/CHROMIC 02/06/20 04:04 VBG pH 7.30 (7.30-7.42) 02/05/20 02:10 VBG pCO2 55.4 mmHg (35-63) 02/05/20 02:10 VBG HCO3 26.7 mmol/L (20-32) 02/05/20 02:10 VBG Base Excess -1.0 mmol/L 02/05/20 02:10 Sodium 138.7 mmol/L (137-145) 02/06/20 04:04 Potassium 4.7 mmol/L (3.6-5.0) 02/06/20 04:04 Chloride 104 mmol/L (98-107) 02/06/20 04:04 Carbon Dioxide 22 mmol/L (22-30) 02/06/20 04:04 Anion Gap 13 (5-19) 02/06/20 04:04 BUN 28 mg/dL (7-20) H 02/06/20 04:04 Creatinine 0.64 mg/dL (0.52-1.25) 02/07/20 17:47 Est GFR ( Amer) > 60 (>60) 02/07/20 17:47 Est GFR (MDRD) Non-Af > 60 (>60) 02/07/20 17:47 Glucose 215 mg/dL (75-110) H 02/06/20 04:04 POC Glucose 166 mg/dL (70-110) H 02/08/20 11:27 Hemoglobin A1c % 7.5 % (4.7-6.0) H 02/06/20 04:04 Lactic Acid 0.9 mmol/L (0.7-2.1) 02/05/20 09:07 Calcium 9.0 mg/dL (8.4-10.2) 02/06/20 04:04 Phosphorus 3.5 mg/dL (2.5-4.5) 02/06/20 04:04 Magnesium 2.5 mg/dL (1.6-2.3) H 02/06/20 04:04 Total Bilirubin 0.4 mg/dL (0.2-1.3) 02/05/20 01:40 Direct Bilirubin 0.4 mg/dL (0.0-0.4) 02/05/20 01:40 Neonat Total Bilirubin Not Reportable 02/05/20 01:40 Neonat Direct Bilirubin Not Reportable 02/05/20 01:40 Neonat Indirect Bili Not Reportable 02/05/20 01:40 AST 24 U/L (17-59) 02/05/20 01:40 ALT 23 U/L (<50) 02/05/20 01:40 Alkaline Phosphatase 101 U/L (38-126) 02/05/20 01:40 Troponin I < 0.012 ng/mL 02/05/20 01:40 NT-Pro-B Natriuret Pep 81 pg/mL (<450) 02/05/20 01:40 Total Protein 7.3 g/dL (6.3-8.2) 02/05/20 01:40 Albumin 3.7 g/dL (3.5-5.0) 02/05/20 01:40 Urine Color YELLOW 02/05/20 03:40 Urine Appearance SLIGHTLY-CLOUDY 02/05/20 03:40 Urine pH 5.0 (5.0-9.0) 02/05/20 03:40 Ur Specific Alpha 1.022 02/05/20 03:40 Urine Protein 30 mg/dL (NEGATIVE) H 02/05/20 03:40 Urine Glucose (UA) >=500 mg/dL (NEGATIVE) H 02/05/20 03:40 Urine Ketones NEGATIVE mg/dL (NEGATIVE) 02/05/20 03:40 Urine Blood NEGATIVE (NEGATIVE) 02/05/20 03:40 Urine Nitrite NEGATIVE (NEGATIVE) 02/05/20 03:40 Urine Bilirubin NEGATIVE (NEGATIVE) 02/05/20 03:40 Urine Urobilinogen NEGATIVE mg/dL (<2.0) 02/05/20 03:40 Ur Leukocyte Esterase NEGATIVE (NEGATIVE) 02/05/20 03:40 Urine WBC (Auto) 6 /HPF 02/05/20 03:40 Urine RBC (Auto) 0 /HPF 02/05/20 03:40 U Non-Squamous Epis Auto 2 /HPF 02/05/20 03:40 Uric Acid Cryst (Auto) FEW /HPF 02/05/20 03:40 Urine Mucus (Auto) RARE /LPF 02/05/20 03:40 Urine Ascorbic Acid NEGATIVE (NEGATIVE) 02/05/20 03:40 Time Trough Drawn 1747 02/07/20 17:47 Vancomycin Trough 8.3 ug/mL (5.0-20.0) 02/07/20 17:47 Influenza A (Rapid) NEGATIVE (NEGATIVE) 02/05/20 02:53 Influenza B (Rapid) NEGATIVE (NEGATIVE) 02/05/20 02:53 02/05/20 01:40 Troponin I < 0.012 NT-Pro-B Natriuret Pep 81 Impressions: Chest X-Ray 02/05/20 01:49 IMPRESSION: 1. No acute pulmonary process identified. Low lung volumes. Chest X-Ray 02/06/20 06:00 IMPRESSION: Chronic elevation right hemidiaphragm Minimal left retrocardiac airspace disease atelectasis versus pneumonia Plan Time Spent: Greater than 30 Minutes Stroke Is this a Stroke Patient?: No Acute Heart Failure - Is this a Heart Failure Patient?: No
== END 2020-02-08 14:49 | disposition home or self-care (01) | DRG 193 ==
LOC: ER 01:36 → EH 04:02 → 4W 05:02 → 4S 02-06 19:14
PROVIDERS: ADMIT Hospitalist; ATTEND Family Medicine
PROC: 5A09357 Assistance with Respiratory Ventilation, Less than 24 Consecutive Hours, Continuous Positive Airway Pressure (ICD-10-PCS; principal; 2020-02-05)
DX: J15.4 Pneumonia due to other streptococci (principal); J96.01 Acute respiratory failure with hypoxia; J44.0 Chronic obstructive pulmonary disease with (acute) lower respiratory infection; J44.1 Chronic obstructive pulmonary disease with (acute) exacerbation; Z16.30 Resistance to unspecified antimicrobial drugs; E11.22 Type 2 diabetes mellitus with diabetic chronic kidney disease; I12.9 Hypertensive chronic kidney disease with stage 1 through stage 4 chronic kidney disease, or unspecified chronic kidney disease; N18.9 Chronic kidney disease, unspecified; M19.90 Unspecified osteoarthritis, unspecified site; F17.200 Nicotine dependence, unspecified, uncomplicated; Z79.84 Long term (current) use of oral hypoglycemic drugs; Z79.52 Long term (current) use of systemic steroids; Z79.899 Other long term (current) drug therapy; Z87.01 Personal history of pneumonia (recurrent); Z83.3 Family history of diabetes mellitus; Z88.6 Allergy status to analgesic agent; Z88.0 Allergy status to penicillin; Z88.8 Allergy status to other drugs, medicaments and biological substances
CPT/HCPCS: 36415; 71045; 80048; 80053; 80202; 81001; 82565; 82803; 82962; 83036; 83605; 83735; 83880; 84100; 84484; 85025; 87040; 87070; 87077; 87186; 87205; 87804; 93005; 93010; 94640; 94660; 94762; 96361; 96365; 96375; 99285; J0692; J1644; J1815; J2920; J2930; J3370; J3490; J7030; J7060; J7620

== ENCOUNTER 2020-05-11 14:01 | Inpatient (IN) | payer MEDICARE, OTHER ==
[2020-05-11 14:56] LABS: ABSOLUTE BASOPHILS # (AUTO) 0.1 10^3/uL (0.0-0.2); ABSOLUTE EOSINOPHILS # (AUTO) 0.3 10^3/uL (0.0-0.6); ABSOLUTE LYMPHOCYTES (AUTO) 1.6 10^3/uL (0.5-4.7); ABSOLUTE MONOCYTES (AUTO) 1.5 10^3/uL (0.1-1.4); ABSOLUTE NEUT (AUTO) 9.9 10^3/uL (1.7-8.2); BASOPHILS % (AUTO) 0.7 % (0-2); EOSINOPHILS % (AUTO) 2.1 % (0-6); HEMATOCRIT 51.6 % (37.9-51.0); HEMOGLOBIN 17.2 g/dL (13.5-17.0); LYMPHOCYTES % (AUTO) 12.3 % (13-45); MEAN CORPUSCULAR HEMOGLOBIN 28.6 pg (27.0-33.4); MEAN CORPUSCULAR HGB CONC 33.4 g/dL (32.0-36.0); MEAN CORPUSCULAR VOLUME 86 fl (80-97); MONOCYTES % (AUTO) 11.3 % (3-13); PLATELET COUNT 423 10^3/uL (150-450); RED BLOOD COUNT 6.03 10^6/uL (4.35-5.55); RED CELL DISTRIBUTION WIDTH 15.6 % (11.5-14.0); SEGMENTED NEUTROPHILS % (AUTO) 73.6 % (42-78); TOTAL CELLS COUNTED % (AUTO) 100 %; WHITE BLOOD COUNT 13.4 10^3/uL (4.0-10.5)
[2020-05-11 15:05] LABS: ALKALINE PHOSPHATASE 92 U/L (38-126); ANION GAP 13 (5-19); ASPARTATE AMINO TRANSFERASE 22 U/L (17-59); BILIRUBIN,DIRECT 0.1 mg/dL (0.0-0.4); BILIRUBIN,TOTAL 0.5 mg/dL (0.2-1.3); BLOOD UREA NITROGEN 17 mg/dL (7-20); CALCIUM 10.2 mg/dL (8.4-10.2); CARBON DIOXIDE 24 mmol/L (22-30); CHLORIDE 102 mmol/L (98-107); GLUCOSE 164 mg/dL (75-110); POTASSIUM 4.3 mmol/L (3.6-5.0); TOTAL PROTEIN 8.1 g/dL (6.3-8.2)
[2020-05-11] MEDS ORDERED: NORMAL SALINE 1000 ML 1,000 ML IV ONE (15:53)
[2020-05-11] MEDS ORDERED: LIDOCAINE 1% INJ-PF (10 MG/ML) 30 ML SDV ONE ×2 (16:30→19:48)
[2020-05-11] MEDS ORDERED: LIDOCAINE 2% INJ (20 MG/ML) 20 ML MDV ONE (16:31)
--- NOTE | 2020-05-11 16:51 | RADIOLOGY REPORT (SQ) ---
EXAM DESCRIPTION: CHEST SINGLE VIEW IMAGES COMPLETED DATE/TIME: 05/11/2020 4:36 pm REASON FOR STUDY: cough COMPARISON: Chest radiographs 02/06/2020. EXAM PARAMETERS: NUMBER OF VIEWS: One view. TECHNIQUE: Single frontal radiographic view of the chest acquired. RADIATION DOSE: NA LIMITATIONS: None. FINDINGS: LUNGS AND PLEURA: Lingular and left lower lobe airspace opacities. No large pleural effus ion. No pneumothorax. MEDIASTINUM AND HILAR STRUCTURES: Unchanged contours. HEART AND VASCULAR STRUCTURES: Heart normal in size. Normal vasculature. BONES: No acute findings. HARDWARE: None in the chest. OTHER: No other significant finding. IMPRESSION: Lingular and left lower lobe airspace opacities concerning for pneumonia. TECHNICAL DOCUMENTATION: JOB ID: [id number] 2010 [employer]- All Rights Reserved Reading location - IP/workstation name: [email or web address]
[2020-05-11] MEDS ORDERED: LIDOCAINE 1% INJ (10 MG/ML) 10 ML MDV INJ PRN (17:00)
[2020-05-11] MEDS ORDERED: VANCOMYCIN HCL INJ 1000 MG VIAL IV ONE (17:06)
[2020-05-11] MEDS ORDERED: FENTANYL CITRATE INJ/PF 100 MCG/2 ML AMPUL ONE (17:10)
[2020-05-11] MEDS ORDERED: LIDOCAINE 1%/EPINEPHRINE INJ 20 ML VIAL ONE (17:11)
[2020-05-11] MEDS ORDERED: FENTANYL CITRATE INJ/PF 250 MCG/5 ML AMPULE IV ONE (17:15)
[2020-05-11 17:22] LABS: INTERNATIONAL RATION (INR) 0.96; PROTHROMBIN TIME 12.8 SEC (11.4-15.4)
[2020-05-11 17:23] LABS: PARTIAL THROMBOPLASTIN TIME 32.5 SEC (23.5-35.8)
[2020-05-11] MEDS ORDERED: MIDAZOLAM HCL INJ 5 MG/1 ML VIAL IV ONE (17:30)
[2020-05-11] MEDS ORDERED: CEFEPIME 2 GM/D5W RTU 2 GM/50 ML RTUPB IV ONE (18:00)
--- NOTE | 2020-05-11 18:16 | PDOC H&P ---
History of Present Illness Admission Date/PCP: 05/11/20 17:52 Nitin VELÁSQUEZ MD Patient complains of: Acute worsening of shortness of breath History of Present Illness: ALYSSIA GUTIÉRREZ is a 80 year old male who was admitted by this provider on February 05, 2020. He was discharged on February 07. The patient was admitted for pneumonia at that time. He has a history of diabetes and chronic kidney disease. He has a history of hypertension. He denies COPD but he has been admitted for pneumonia twice in 6 months and it appears that there is an emphysematous bleb on his chest x-ray. Chest CT is pending. Slightly elevated white blood cell count at 13,000. His lactic acid is slightly elevated but under 3.0. He has a productive cough and is exhibiting some increased work of breathing. He was stable enough to drive himself to the hospital. He will be admitted to the hospitalist service. We will give nebulizer treatments, antibiotics and possibly intravenous steroids. We will continue his other medications and treat his comorbidities. Past Medical History Cardiac Medical History: Reports: Hypertension Denies: Coronary Artery Disease, Myocardial Infarction Pulmonary Medical History: Reports: Pneumonia Denies: Asthma, Bronchitis, Chronic Obstructive Pulmonary Disease (COPD) Neurological Medical History: Denies: Seizures Endocrine Medical History: Reports: Diabetes Mellitus Type 2 Renal/ Medical History: Reports: Chronic Kidney Disease Musculoskeltal Medical History: Reports: Arthritis Psychiatric Medical History: Reports: Tobacco Dependency Denies: Alcohol Dependency, Bipolar Disorder, Depression, General Anxiety Disorder Hematology: Denies: Anemia Infectious Medical History: Reports: None Past Surgical History Past Surgical History: Reports: Orthopedic Surgery, Tonsillectomy Social History Information Source: Patient, [facility] Records Lives with: Family Smoking Status: Current Every Day Smoker Electronic Cigarette use?: No Cigars Per Day: 3 Frequency of Alcohol Use: Rare Hx Recreational Drug Use: No Hx Prescription Drug Abuse: No - Advance Directive Resuscitation Status: Full Code Surrogate healthcare decision maker:: The patient's Family History Family History: DM Parental Family History Reviewed: Yes Children Family History Reviewed: Yes Sibling(s) Family History Reviewed.: Yes Medication/Allergy Home Medications: Losartan Potassium [Cozaar 100 mg Tablet] 100 mg PO DAILY 08/04/14 Metformin HCl 850 mg PO BID 08/04/14 Amlodipine Besylate [Norvasc 5 mg Tablet] 5 mg PO DAILY 04/29/17 Gemfibrozil [Lopid 600 mg Tablet] 600 mg PO BID 02/05/20 Montelukast Sodium [Singulair 10 mg Tablet] 10 mg PO QHS 02/05/20 Sildenafil Citrate 100 mg PO DAILYP PRN 02/05/20 Cefdinir 300 mg PO BID #14 capsule 02/08/20 Codeine Phosphate/Guaifenesin [Guaifenesin-Codeine Syrup] 5 ml PO Q6HP PRN #120 ml 02/08/20 Codeine Phosphate/Guaifenesin [Guaifenesin-Codeine Syrup] 5 ml PO Q6HP PRN #120 ml 02/08/20 Prednisone [Deltasone 20 mg Tablet] 40 mg PO DAILY #10 tablet 02/08/20 Allergies/Adverse Reactions: amoxicillin Allergy (Verified 02/05/20 04:34) hydrocodone [Hydrocodone] Adverse Reaction (Verified 05/03/17 11:10) Vomiting Nitrate Analogues Adverse Reaction (Verified 02/05/20 02:18) Review of Systems All systems: reviewed and no additional remarkable complaints except as stated Constitutional: PRESENT: weight loss Respiratory: PRESENT: dyspnea, sputum Physical Exam Vital Signs: Temp Pulse Resp BP Pulse Ox 98.7 F 29 H 144/86 H 89 L 05/11/20 14:33 05/11/20 14:24 05/11/20 14:24 05/11/20 14:24 Intake & Output 05/10/20 05/11/20 05/12/20 06:59 06:59 06:59 Weight 86.636 kg General appearance: PRESENT: cooperative, mild distress, well-developed, well- nourished Head exam: PRESENT: atraumatic, normocephalic Eye exam: PRESENT: conjunctiva pink, EOMI. ABSENT: scleral icterus Ear exam: PRESENT: normal external ear exam. ABSENT: bleeding, drainage Mouth exam: PRESENT: moist, neck supple, tongue midline Neck exam: PRESENT: full ROM. ABSENT: carotid bruit, JVD, lymphadenopathy, tenderness Respiratory exam: PRESENT: clear to auscultation vicki, prolonged expiratory phas - Aspiratory phase is longer than inspiratory phase, symmetrical, unlabored. ABSENT: accessory muscle use, rales, rhonchi, tachypnea, wheezes Cardiovascular exam: PRESENT: RRR, +S1, +S2. ABSENT: diastolic murmur, irregular rhythm, systolic murmur GI/Abdominal exam: PRESENT: normal bowel sounds, soft. ABSENT: distended, guarding, tenderness Rectal exam: PRESENT: deferred Gentrourinary exam: ABSENT: indwelling catheter Extremities exam: ABSENT: clubbing, pedal edema Musculoskeletal exam: PRESENT: ambulatory, normal inspection. ABSENT: deformity, dislocation Neurological exam: PRESENT: alert, awake, oriented to person, oriented to place, oriented to time, oriented to situation, CN II-XII grossly intact. ABSENT: altered, motor sensory deficit Psychiatric exam: PRESENT: appropriate affect. ABSENT: agitated, anxious, homicidal ideation, suicidal ideation Focused psych exam: ABSENT: delusional, paranoid, restlessness Skin exam: PRESENT: dry, normal color, warm. ABSENT: rash Results Laboratory Results: 05/11/20 14:20 05/11/20 14:20 05/11/20 05/11/20 05/11/20 14:20 14:20 14:20 WBC 13.4 H RBC 6.03 H Hgb 17.2 H Hct 51.6 H MCV 86 MCH 28.6 MCHC 33.4 RDW 15.6 H Plt Count 423 Seg Neutrophils % 73.6 Sodium 138.6 Potassium 4.3 Chloride 102 Carbon Dioxide 24 Anion Gap 13 BUN 17 Creatinine 0.93 Est GFR ( Amer) > 60 Glucose 164 H Lactic Acid 2.9 H Calcium 10.2 Total Bilirubin 0.5 AST 22 Alkaline Phosphatase 92 Total Protein 8.1 Albumin 5.0 Impressions: Chest X-Ray 05/11/20 15:52 IMPRESSION: Lingular and left lower lobe airspace opacities concerning for pneumonia. Assessment and Plan - Diagnosis (1) Acute respiratory failure with hypoxia Is this a current diagnosis for this admission?: Yes Plan: 05/11/2020 Supplemental oxygen to keep oxygen saturation greater than or equal to 90%. Nebulizers scheduled and as needed. (2) Pneumonia Qualifiers: Pneumonia type: due to unspecified organism Laterality: left Lung location: unspecified part of lung Qualified Code(s): J18.9 - Pneumonia, unspecified organism Is this a current diagnosis for this admission?: Yes Plan: 05/11/2020 Similar presentation to his January admission. Blood cultures were drawn. I have asked for a sputum culture as he has a productive cough. Will receive IV antibiotics. (3) Cough Is this a current diagnosis for this admission?: Yes Plan: 05/11/2020 No coughing fits. We will utilize mucolytic's. Cough suppressants if needed. (4) Lactic acidemia Is this a current diagnosis for this admission?: Yes Plan: 05/11/2020 Secondary to infection. IV fluids and follow-up lactic acid level (5) Hyperglycemia due to type 2 diabetes mellitus Qualifiers: Diabetes mellitus fdc insulin use: without fdc use Qualified Code(s): E11.65 - Type 2 diabetes mellitus with hyperglycemia Is this a current diagnosis for this admission?: Yes Plan: 05/11/2020 He has a prescription for his diabetes but does not take the medicine. We will perform Accu-Cheks and have sliding scale coverage as he will be on steroids. (6) Leukocytosis Qualifiers: Leukocytosis type: unspecified Qualified Code(s): D72.829 - Elevated white blood cell count, unspecified Is this a current diagnosis for this admission?: Yes Plan: 05/11/2020 Secondary to infection. Monitor with serial blood tests. Should normalize with antibiotics. (7) Hypertension Qualifiers: Hypertension type: essential hypertension Qualified Code(s): I10 - Essential (primary) hypertension Is this a current diagnosis for this admission?: Yes Plan: 05/11/2020 Monitor on telemetry. Administer medications and vital signs every 4 hours. - Time Time Spent with patient: 35 or more minutes Smoking Cessation Education: 3 to 10 minutes Medications reviewed and adjusted accordingly: Yes Anticipated discharge: Home - Inpatient Certification Based on my medical assessment, after consideration of the patient's comorbidities, presenting symptoms, or acuity I expect that the services needed warrant INPATIENT care.: Yes I certify that my determination is in accordance with my understanding of Medicare's requirements for reasonable and necessary INPATIENT services [42 CFR 412.3e].: Yes Medical Necessity: Need For IV Fluids, Need For Continuous Telemetry Monitoring, Need for Nebulizer Therapy and Monitoring of Response, Need for IV Antibiotics Post Hospital Care: D/C [employer] Documentation
[2020-05-11] MEDS ORDERED: ACETAMINOPHEN 325 MG TABLET PO PRN (18:30)
[2020-05-11] MEDS ORDERED: ALBUTEROL SULFATE 0.083% NEB 2.5 MG/3 ML AMPUL NEB PRN (18:30)
--- NOTE | 2020-05-11 19:23 | RADIOLOGY REPORT (SQ) ---
EXAM DESCRIPTION: CT CHEST WITH IMAGES COMPLETED DATE/TIME: 05/11/2020 5:47 pm REASON FOR STUDY: SOBR/copd/blebd/infiltrates/ascendaortic aneurysm COMPARISON: Chest radiograph same date. TECHNIQUE: CT scan of the chest performed using helical scanning technique with dynamic intravenous contrast injection. Images reviewed with lung, soft tissue and bone windows. Reconstructed coronal and sagittal MPR and MIP images reviewed. All images stored on PACS. All CT scanners at this facility use dose modulation, iterative reconstruction, and/or weight based d osing when appropriate to reduce radiation dose to as low as reasonably achievable (ALARA). [facility]: Dose Right [facility]: CareDose [facility]: Dose Right [facility]: Teradose 4D [facility]: [employer] Mobile CONTRAST TYPE AND DOSE: 79 mL Omnipaque 350- low osmolar. RENAL FUNCTION: GFR > 60. RADIATION DOSE: CT Rad equipment meets quality standard of care and radiation dose reduction techniq ues were employed. CTDIvol: 12.9 mGy. DLP: 577 mGy-cm. . LIMITATIONS: None. FINDINGS: LUNGS AND PLEURA: There is a moderate left pneumothorax with about 50% loss of volume in t he left lung. Atelectasis at the lung bases. Bronchiectasis and bronchial wall thickening in the lo wer lobes bilaterally. Background mild pulmonary emphysema. No focal consolidation. No pleural eff usion. No suspicious pulmonary nodules. HILAR AND MEDIASTINAL STRUCTURES: No shift of the mediastinum. No mediastinal mass or adenopathy. HEART AND VASCULAR STRUCTURES: No aneurysm or dissection. No central pulmonary emboli. No pericardi al effusion. HARDWARE: None in the chest. UPPER ABDOMEN: Moderate hepatic steatosis. THYROID AND OTHER SOFT TISSUES: No masses. No adenopathy. BONES: No significant finding. OTHER: No other significant finding. IMPRESSION: 1. Moderate left pneumothorax with atelectasis in the left lower lobe. Findings were called to Dr. Sohan pierce on 05/11/2020 at 1916 hours. 2. 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 There is no focal consolidation. 3. Moderate hepatic steatosis. TECHNICAL DOCUMENTATION: JOB ID: [id number] Quality ID # [id number]: Final reports with documentation of one or more dose reduction techniques (e.g., Au tomated exposure control, adjustment of the mA and/or kV according to patient size, use of iterative reconstruction technique) 2010 [employer]- All Rights Reserved Reading location - IP/workstation name: [email or web address]
[2020-05-11] MEDS ORDERED: VANCOMYCIN HCL INJ 500 MG VIAL IV ONE (19:26)
--- NOTE | 2020-05-11 19:35 | ER Document Report ---
Entered by ALPA THOMASON SCRIBE 05/11/20 1553 Acting as scribe for:KATHIE VITALE MD ED General - General Chief Complaint: Shortness Of Breath Stated Complaint: SHORTNESS OF BREATH Information source: Patient Notes: This 80-year-old male with diabetes, HTN and proteinuria presents to the emergency department complaining of shortness of breath that began this morning. Patient explains that he woke up this morning with the shortness of breath and nasal congestion. Patient said that he did two breathing treatments at home with no relief. Patient said that he was recently admitted at this hospital for vicki ateral pneumonia two months ago. Patient said that he has felt fine and recovered until this morning when he woke up. Patient reports cough and beige sputum. Patient denies fever and chills. TRAVEL OUTSIDE OF THE [place] IN LAST 30 DAYS: No - Related Data Allergies/Adverse Reactions: amoxicillin Allergy (Verified 02/05/20 04:34) hydrocodone [Hydrocodone] Adverse Reaction (Verified 05/03/17 11:10) Vomiting Nitrate Analogues Adverse Reaction (Verified 02/05/20 02:18) Home Medications: metformin, BP meds, high cholesterol Past Medical History - General Information source: Patient - Social History Smoking Status: Current Every Day Smoker Cigarette use (# per day): Yes Chew tobacco use (# tins/day): No Drug Abuse: Other Family History: Reviewed & Not Pertinent Patient has homicidal ideation: No - Past Medical History Cardiac Medical History: Reports: Hx Hypertension Pulmonary Medical History: Reports: Hx Pneumonia Endocrine Medical History: Reports: Hx Diabetes Mellitus Type 2 Musculoskeletal Medical History: Reports Hx Arthritis Past Surgical History: Reports: Hx Oral Surgery, Hx Orthopedic Surgery, Hx Tonsillectomy - Immunizations Hx Diphtheria, Pertussis, Tetanus Vaccination: Yes Review of Systems - Review of Systems Constitutional: See HPI. denies: Chills, Fever EENT: See HPI, Nose congestion Cardiovascular: No symptoms reported Respiratory: See HPI, Cough, Short of breath, Sputum - Beige Gastrointestinal: No symptoms reported Genitourinary: No symptoms reported Male Genitourinary: No symptoms reported Musculoskeletal: No symptoms reported Skin: No symptoms reported Hematologic/Lymphatic: No symptoms reported Neurological/Psychological: No symptoms reported -: Yes All other systems reviewed and negative Physical Exam - Vital signs Vitals: Temp 98.7 F 05/11/20 14:02 - Notes Notes: Physical Exam: General: Alert, appears well. HEENT: Normocephalic. Atraumatic. PERRL. Extraocular movements intact. Oropharynx clear. Neck: Supple. Non-tender. Respiratory: No respiratory distress. Clear and equal breath sounds bilaterally. Cardiovascular: Regular rate and rhythm. Abdominal: Non-tender. Mildly distended. Normal Bowel Sounds. Back: No gross abnormalities. Extremities: Moves all four extremities. Upper extremities: Normal inspection. Normal ROM. Lower extremities: Normal inspection. No edema. Normal ROM. Neurological: Normal cognition. AAOx4. Normal speech. Psychological: Normal affect. Normal Mood. Skin: Warm. Dry. Normal color. Course - Re-evaluation Re-evalutation: 05/11/20 17:35 Patient saturations 96% on 2 L at this time not showing any worsening respiratory distress and no cough. 05/11/20 17:39 Earlier had discussed case with the on-call surgical is regarding a preliminary pneumothorax diagnosis at the been made by me. Once read by the radiologist the radiologist report did not show that there was a pneumothorax but an infiltrate in both the lingula and the left base an obvious bleb formation compared to prior chest x-ray from 3 months ago. I recall that Dr. Cobian in told him that that was a false alarm on the diagnosis of pneumothorax and patient will be admitted to the hospitalist service and we took the advice of Dr. Cobian to order CT scan of the chest for further evaluation of abnormalities of the chest. 05/11/20 19:[address] Update [address] patient's CT scan of chest with contrast shows that he has a 50% pneumothorax on the left without any history of across midline. There is atelectasis in the bases. No other acute process noted. - Vital Signs Vital signs: Temp Pulse Resp BP Pulse Ox 98.7 F 23 H 153/94 H 95 05/11/20 14:33 05/11/20 19:01 05/11/20 19:01 05/11/20 19:00 05/11/20 17:37 Vital signs as stated shows a pulse ox of 89% that is without nasal cannula O2. - Laboratory Result Diagrams: 05/11/20 14:20 05/11/20 14:20 Laboratory results interpreted by me: 05/11/20 05/11/20 05/11/20 14:20 14:20 14:20 WBC 13.4 H RBC 6.03 H Hgb 17.2 H Hct 51.6 H RDW 15.6 H Lymph % (Auto) 12.3 L Absolute Neuts (auto) 9.9 H Absolute Monos (auto) 1.5 H Glucose 164 H Lactic Acid 2.9 H 05/11/20 17:37 Elevated white blood cell count and lactic acid of 2.9. 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 Discharge - Discharge Clinical Impression: COPD exacerbation, Cough, Hypoxia, Pneumonia, Respiratory distress, Pneumothorax on left Condition: Fair Disposition: ADMITTED INPATIENT Admitting Provider: Rc (Hospitalist) - Regular Unit Admitted: IMCU I personally performed the services described in the documentation, reviewed and edited the documentation which was dictated to the scribe in my presence, and it accurately records my words and actions.
[2020-05-11] MEDS ORDERED: GLUCAGON,HUMAN RECOMB 1 MG INJ IM PRN (19:43)
[2020-05-11] MEDS ORDERED: DEXTROSE 50%-WATER 25 GM/50 ML DISP.SYRIN IV PRN ×2 (19:43)
[2020-05-11] MEDS ORDERED: DEXTROSE 40% GEL 15 GM TUBE PO PRN ×2 (19:43)
[2020-05-11] MEDS: MIDAZOLAM 2 MG/2 ML INJ IV ONE ×2 (19:59→20:33)
[2020-05-11] MEDS: FENTANYL CITRATE INJ/PF 100 MCG/2 ML AMPUL IV ONE ×2 (20:00→20:33)
[2020-05-11] MEDS: CEFEPIME 1 GM/D5W RTU 1 GM/50 ML RTUPB IV SCH (21:19)
--- NOTE | 2020-05-11 21:32 | Operative Report ---
Nonrecallable Operative Report DATE OF SURGERY: 05/11/20 PREOPERATIVE DIAGNOSIS: Spontaneous left pneumothorax POSTOPERATIVE DIAGNOSIS: Same as above OPERATION: Left-sided tube thoracostomy SURGEON: RAHEEL MORENO ANESTHESIA: Moderate Sedation - Versed and fentanyl TISSUE REMOVED OR ALTERED: None COMPLICATIONS: None apparent ESTIMATED BLOOD LOSS: Minimal PROCEDURE: Drains/implants: 28 Armenian chest tube in the left anterior chest. Procedure in detail: After informed consent was obtained, the patient was laid in the semi-upright position in the emergency department. 4 mg of Versed and 100 mcg of fentanyl were administered in the IV for conscious sedation. 1% lidocaine was used to anesthetize the skin of the left lateral chest. An incision was created at the anterior axillary line, at the level of the nipple. This was done with a 15 blade scalpel. Dissection was carried to the chest wall using blunt dissection. The thoracic cavity was entered bluntly with a Malissa clamp. A large mota of air was identified. A 28 Armenian chest tube was then inserted into the chest and directed anteriorly. The tube was sutured to the chest wall using 0 silk suture. The chest tube was attached to suction, and a large air leak was seen initially. A dressing was placed, and the procedure was then concluded. All sponge, instrument, and needle counts were correct.. Condition: Stable.
--- NOTE | 2020-05-11 21:35 | RADIOLOGY REPORT (SQ) ---
EXAM DESCRIPTION: XR CHEST 1 VIEW COMPLETED DATE/TME: 05/11/2020 00:00 CLINICAL HISTORY: 80 years, Male, ptx, s/p chest tube Comparison: May 11, 2020 FINDINGS: Interval placement of left chest tube. The proximal sidehole is at the lateral chest wall. Pneumothorax has resolved. Lung volumes are decreased. Bibasilar subsegmental atelectasis. Cardiac silhouette stable in size. IMPRESSION: Resolution of left pneumothorax status post chest tube placement. The proximal sidehole of the chest tube is at the lateral chest wall. Bibasilar subsegmental atelectasis.
--- NOTE | 2020-05-11 21:41 | PDOC CONSULTATION ---
Consultation Consult Date: 05/11/20 Provider Consulted: SURGICAL SURGICALIST Consult reason:: Spontaneous left pneumothorax History of Present Illness Admission Date/PCP: 05/11/20 17:52 Nitin VELÁSQUEZ MD Patient complains of: Cough, shortness of breath, left chest pain History of Present Illness: ALYSSIA GUTIÉRREZ is a 80 year old male with a long history of chronic bronchitis, chronic cough, and a 2-day history of shortness of breath and chest pain. The patient was evaluated in the emergency department where suspicion of pneumothorax was seen on chest x-ray. This was confirmed with CT scan. The patient reports dyspnea with exertion, sharp/stabbing left-sided chest pain, and increasing cough over the last 3 to 4 days. The patient denies nausea, vomiting, fevers, chills, melena, hematochezia, hematemesis, dizziness, orthostasis, blurry vision, headache. Nothing makes his pain or shortness of breath better. His pain does not radiate. He does have a history of smoking cigars every day, although he reports he does not inhale the smoke. He has never experienced symptoms like this before. He has never had a pneumothorax before. Past Medical History Cardiac Medical History: Reports: Hypertension Denies: Coronary Artery Disease, Myocardial Infarction Pulmonary Medical History: Reports: Pneumonia Denies: Asthma, Bronchitis, Chronic Obstructive Pulmonary Disease (COPD) Neurological Medical History: Denies: Seizures Endocrine Medical History: Reports: Diabetes Mellitus Type 2 Renal/ Medical History: Reports: Chronic Kidney Disease Musculoskeltal Medical History: Reports: Arthritis Psychiatric Medical History: Reports: Tobacco Dependency Denies: Alcohol Dependency, Bipolar Disorder, Depression, General Anxiety Disorder Hematology: Denies: Anemia Infectious Medical History: Reports: None Past Surgical History Past Surgical History: Reports: Orthopedic Surgery, Tonsillectomy Social History Lives with: Family Smoking Status: Current Every Day Smoker Electronic Cigarette use?: No Cigars Per Day: 3 Frequency of Alcohol Use: Rare Hx Recreational Drug Use: No Hx Prescription Drug Abuse: No - Advance Directive Resuscitation Status: Full Code Family History Family History: Reviewed & Not Pertinent Parental Family History Reviewed: Yes Children Family History Reviewed: Yes Sibling(s) Family History Reviewed.: Yes Medication/Allergy Home Medications: Losartan Potassium [Cozaar 100 mg Tablet] 100 mg PO DAILY 08/04/14 Metformin HCl 850 mg PO BID 08/04/14 Amlodipine Besylate [Norvasc 5 mg Tablet] 5 mg PO DAILY 04/29/17 Gemfibrozil [Lopid 600 mg Tablet] 600 mg PO BID 02/05/20 Montelukast Sodium [Singulair 10 mg Tablet] 10 mg PO QHS 02/05/20 Sildenafil Citrate 100 mg PO DAILYP PRN 02/05/20 Cefdinir 300 mg PO BID #14 capsule 02/08/20 Codeine Phosphate/Guaifenesin [Guaifenesin-Codeine Syrup] 5 ml PO Q6HP PRN #120 ml 02/08/20 Codeine Phosphate/Guaifenesin [Guaifenesin-Codeine Syrup] 5 ml PO Q6HP PRN #120 ml 02/08/20 Prednisone [Deltasone 20 mg Tablet] 40 mg PO DAILY #10 tablet 02/08/20 Allergies/Adverse Reactions: amoxicillin Allergy (Verified 02/05/20 04:34) hydrocodone [Hydrocodone] Adverse Reaction (Verified 05/03/17 11:10) Vomiting Nitrate Analogues Adverse Reaction (Verified 02/05/20 02:18) Review of Systems Constitutional: ABSENT: anorexia, chills, fatigue Eyes: ABSENT: visual disturbances Ears: ABSENT: hearing changes Nose, Mouth, and Throat: ABSENT: sore throat Cardiovascular: PRESENT: chest pain, dyspnea on exertion Respiratory: PRESENT: cough, dyspnea Gastrointestinal: ABSENT: abdominal pain, bloating, hematemesis, hematochezia, melena, nausea, vomiting Musculoskeletal: ABSENT: deformity Integumentary: ABSENT: lesions, pruritus Neurological: ABSENT: confusion, convulsions, dizziness Psychiatric: ABSENT: anxiety, depression Endocrine: ABSENT: cold intolerance, heat intolerance Hematologic/Lymphatic: ABSENT: easy bleeding, easy bruising Physical Exam Vital Signs: Temp Pulse Resp BP Pulse Ox 98.7 F 91 24 H 157/103 H 94 05/11/20 14:33 05/11/20 20:40 05/11/20 20:40 05/11/20 20:40 05/11/20 20:40 Intake & Output 05/10/20 05/11/20 05/12/20 06:59 06:59 06:59 Intake Total 1000 Balance 1000 Weight 86.636 kg General appearance: PRESENT: no acute distress, cooperative Head exam: PRESENT: atraumatic, normocephalic Eye exam: PRESENT: EOMI, PERRLA. ABSENT: scleral icterus Mouth exam: PRESENT: moist, neck supple Neck exam: ABSENT: meningismus, tenderness, thyromegaly, tracheal deviation Respiratory exam: PRESENT: unlabored. ABSENT: chest wall tenderness, tachypnea Cardiovascular exam: PRESENT: RRR. ABSENT: tachycardia Vascular exam: PRESENT: normal capillary refill. ABSENT: pallor GI/Abdominal exam: PRESENT: soft. ABSENT: distended, firm, guarding, rigid, tenderness Rectal exam: PRESENT: deferred Extremities exam: ABSENT: clubbing Musculoskeletal exam: ABSENT: deformity Neurological exam: PRESENT: alert, awake, oriented to person, oriented to place, oriented to time, oriented to situation, CN II-XII grossly intact Psychiatric exam: ABSENT: agitated, anxious, depressed Focused psych exam: ABSENT: delusional Skin exam: ABSENT: cyanosis, erythema, jaundice Results Laboratory Results: 05/11/20 14:20 05/11/20 14:20 05/11/20 05/11/20 05/11/20 14:20 14:20 14:20 WBC 13.4 H RBC 6.03 H Hgb 17.2 H Hct 51.6 H MCV 86 MCH 28.6 MCHC 33.4 RDW 15.6 H Plt Count 423 Seg Neutrophils % 73.6 Sodium 138.6 Potassium 4.3 Chloride 102 Carbon Dioxide 24 Anion Gap 13 BUN 17 Creatinine 0.93 Est GFR ( Amer) > 60 Glucose 164 H Lactic Acid 2.9 H Calcium 10.2 Total Bilirubin 0.5 AST 22 Alkaline Phosphatase 92 Total Protein 8.1 Albumin 5.0 Impressions: Chest X-Ray 05/11/20 15:52 IMPRESSION: Lingular and left lower lobe airspace opacities concerning for pneumonia. Chest CT 05/11/20 17:24 IMPRESSION: 1. Moderate left pneumothorax with atelectasis in the left lower lobe. Findings were called to Dr. Simms on 05/11/2020 at 1916 hours. 2. 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 There is no focal consolidation. 3. Moderate hepatic steatosis. Assessment & Plan - Diagnosis (1) Spontaneous pneumothorax Is this a current diagnosis for this admission?: Yes - Plan Summary Plan Summary: This is a 80-year-old male with a spontaneous pneumothorax. It has been confirmed with CT scan, after there was question regarding its presence on chest x-ray. I have discussed tube thoracostomy at length with the patient. He is in agreement with the placement of a tube thoracostomy today in the ER. I will leave the tube in for 48 hours, and reassess. This is the patient's first spontaneous pneumothorax, and it will likely resolve with tube thoracostomy. No plan for pleurodesis at this time. Surgery will follow this patient very closely with you.
--- NOTE | 2020-05-11 21:52 | EKG REPORT ---
SEVERITY:- ABNORMAL ECG - SINUS RHYTHM RBBB AND LAFB : Confirmed by: Kelly Manzano MD 11-May-2020 21:52:14
[2020-05-11] MEDS: INSULIN REG, HUMAN 100 UNIT/ML 3 ML VIAL (PYX) SUBCUT SCH (22:29)
[2020-05-11] MEDS: FAMOTIDINE 20 MG TABLET PO SCH (22:36)
[2020-05-11] MEDS: MONTELUKAST SODIUM 10 MG TABLET PO SCH (22:36)
[2020-05-11] MEDS: GUAIFENESIN 600 MG TABLET.SA PO SCH (22:36)
[2020-05-11] MEDS ORDERED: LOSARTAN POTASSIUM 50 MG TABLET PO ONE (22:45)
[2020-05-11] MEDS: IPRATROPIUM/ALBUTEROL 0.5-2.5 MG/3 ML AMPUL NEB SCH (23:58)
[2020-05-12] MEDS: NORMAL SALINE 1000 ML 1,000 ML IV PRN ×2 (00:08→06:50)
[2020-05-12] MEDS: KETOROLAC TROMETHAMINE INJ/PF 30 MG/1 ML SDV IV PRN ×3 (03:59→18:11)
[2020-05-12 05:00] LABS: ABSOLUTE BASOPHILS # (AUTO) 0.1 10^3/uL (0.0-0.2); ABSOLUTE EOSINOPHILS # (AUTO) 0.3 10^3/uL (0.0-0.6); ABSOLUTE MONOCYTES (AUTO) 1.5 10^3/uL (0.1-1.4); ABSOLUTE NEUT (AUTO) 8.8 10^3/uL (1.7-8.2); BASOPHILS % (AUTO) 0.7 % (0-2); EOSINOPHILS % (AUTO) 2.2 % (0-6); HEMATOCRIT 46.8 % (37.9-51.0); HEMOGLOBIN 15.7 g/dL (13.5-17.0); LYMPHOCYTES % (AUTO) 15.5 % (13-45); MEAN CORPUSCULAR HEMOGLOBIN 28.7 pg (27.0-33.4); MEAN CORPUSCULAR HGB CONC 33.6 g/dL (32.0-36.0); MEAN CORPUSCULAR VOLUME 85 fl (80-97); MONOCYTES % (AUTO) 11.8 % (3-13); PLATELET COUNT 383 10^3/uL (150-450); RED BLOOD COUNT 5.48 10^6/uL (4.35-5.55); RED CELL DISTRIBUTION WIDTH 15.4 % (11.5-14.0); SEGMENTED NEUTROPHILS % (AUTO) 69.8 % (42-78); TOTAL CELLS COUNTED % (AUTO) 100 %; WHITE BLOOD COUNT 12.6 10^3/uL (4.0-10.5)
[2020-05-12 05:28] LABS: ANION GAP 8 (5-19); BLOOD UREA NITROGEN 13 mg/dL (7-20); CALCIUM 9.4 mg/dL (8.4-10.2); CARBON DIOXIDE 23 mmol/L (22-30); CHLORIDE 105 mmol/L (98-107); GLUCOSE 131 mg/dL (75-110); POTASSIUM 4.2 mmol/L (3.6-5.0)
[2020-05-12] MEDS: INSULIN REG, HUMAN 100 UNIT/ML 3 ML VIAL (PYX) SUBCUT SCH ×4 (07:11→21:30)
[2020-05-12] MEDS: IPRATROPIUM/ALBUTEROL 0.5-2.5 MG/3 ML AMPUL NEB SCH ×2 (08:01→16:15)
[2020-05-12] MEDS: FAMOTIDINE 20 MG TABLET PO SCH ×2 (09:51→21:30)
[2020-05-12] MEDS: LOSARTAN POTASSIUM 50 MG TABLET PO SCH (09:52)
[2020-05-12] MEDS: GUAIFENESIN 600 MG TABLET.SA PO SCH ×2 (09:52→21:30)
[2020-05-12] MEDS: AMLODIPINE BESYLATE 5 MG TABLET PO SCH (09:53)
[2020-05-12] MEDS: ENOXAPARIN SODIUM INJ 40 MG/0.4 ML DISP.SYRIN SUBCUT SCH (09:53)
[2020-05-12] MEDS: CEFEPIME 1 GM/D5W RTU 1 GM/50 ML RTUPB IV SCH ×2 (09:53→21:31)
[2020-05-12] MEDS: AZITHROMYCIN 500 MG in DEXTROSE 5%-WATER 250 ML IV SCH (11:00)
--- NOTE | 2020-05-12 11:26 | PDOC PROGRESS REPORT ---
Subjective Progress Note for:: 05/12/20 Subjective:: Patient is feeling better now that the chest tube is in place. He was more worried about the size of his aneurysm by CT scan. He still has occasional cough. Reason For Visit: PNEUMONIA,ACUTE RESPIRATORY FAILURE WITH HYPOXIA, Physical Exam Vital Signs: Temp Pulse Resp BP Pulse Ox 97.8 F 83 19 167/92 H 92 05/12/20 08:00 05/12/20 08:01 05/12/20 08:01 05/12/20 08:00 05/12/20 08:01 Intake & Output 05/11/20 05/12/20 05/13/20 06:59 06:59 06:59 Intake Total 2400 Output Total 600 Balance 1800 Weight 97.9 kg General appearance: PRESENT: no acute distress, cooperative, well-developed, well-nourished Head exam: PRESENT: atraumatic, normocephalic Eye exam: PRESENT: conjunctiva pink. ABSENT: scleral icterus Ear exam: PRESENT: normal external ear exam. ABSENT: bleeding, drainage Mouth exam: PRESENT: moist, tongue midline Respiratory exam: PRESENT: clear to auscultation vicki, symmetrical, unlabored. ABSENT: rales, rhonchi, tachypnea, wheezes Cardiovascular exam: PRESENT: RRR, +S1, +S2 GI/Abdominal exam: PRESENT: normal bowel sounds, soft. ABSENT: distended, guarding, tenderness Rectal exam: PRESENT: deferred Gentrourinary exam: ABSENT: indwelling catheter Extremities exam: ABSENT: pedal edema Musculoskeletal exam: PRESENT: ambulatory, normal inspection. ABSENT: deformity Neurological exam: PRESENT: alert, awake, oriented to person, oriented to place, oriented to time, oriented to situation, CN II-XII grossly intact. ABSENT: altered, motor sensory deficit Psychiatric exam: PRESENT: appropriate affect. ABSENT: agitated, anxious Focused psych exam: ABSENT: delusional, paranoid, restlessness Skin exam: PRESENT: dry, normal color, warm. ABSENT: rash Results Laboratory Results: 05/12/20 04:38 05/12/20 04:38 05/11/20 05/11/20 05/11/20 14:20 14:20 14:20 WBC 13.4 H RBC 6.03 H Hgb 17.2 H Hct 51.6 H MCV 86 MCH 28.6 MCHC 33.4 RDW 15.6 H Plt Count 423 Seg Neutrophils % 73.6 Sodium 138.6 Potassium 4.3 Chloride 102 Carbon Dioxide 24 Anion Gap 13 BUN 17 Creatinine 0.93 Est GFR ( Amer) > 60 Glucose 164 H Lactic Acid 2.9 H Calcium 10.2 Total Bilirubin 0.5 AST 22 Alkaline Phosphatase 92 Total Protein 8.1 Albumin 5.0 05/11/20 05/12/20 05/12/20 21:25 04:38 04:38 WBC 12.6 H RBC 5.48 Hgb 15.7 Hct 46.8 MCV 85 MCH 28.7 MCHC 33.6 RDW 15.4 H Plt Count 383 Seg Neutrophils % 69.8 Sodium 136.1 L Potassium 4.2 Chloride 105 Carbon Dioxide 23 Anion Gap 8 BUN 13 Creatinine 0.78 Est GFR ( Amer) > 60 Glucose 131 H Lactic Acid 1.4 Calcium 9.4 Total Bilirubin AST Alkaline Phosphatase Total Protein Albumin 05/12/20 04:38 WBC RBC Hgb Hct MCV MCH MCHC RDW Plt Count Seg Neutrophils % Sodium Potassium Chloride Carbon Dioxide Anion Gap BUN Creatinine Est GFR ( Amer) Glucose Lactic Acid 0.9 Calcium Total Bilirubin AST Alkaline Phosphatase Total Protein Albumin Impressions: Chest X-Ray 05/11/20 15:52 IMPRESSION: Lingular and left lower lobe airspace opacities concerning for pneumonia. Chest CT 05/11/20 17:24 IMPRESSION: 1. Moderate left pneumothorax with atelectasis in the left lower lobe. Findings were called to Dr. Simms on 05/11/2020 at 1916 hours. 2. 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 There is no focal consolidation. 3. Moderate hepatic steatosis. Assessment and Plan - Diagnosis (1) Acute respiratory failure with hypoxia Is this a current diagnosis for this admission?: Yes Plan: 05/11/2020 Supplemental oxygen to keep oxygen saturation greater than or equal to 90%. Ne bulizers scheduled and as needed. 05/12/2020 Currently back on room air. Respiratory failure with hypoxia has resolved. (2) Pneumothorax on left Is this a current diagnosis for this admission?: Yes Plan: 05/12/[address] scanning of the chest after my admission. It clearly showed a 50% pneumothorax on the left. Dr. Cobian proceeded to put a chest tube in. The patient currently has a left-sided chest tube hooked to a Pleur-evac. With the pneumothorax resolved the patient no longer needs oxygen. Chest x-ray tomorrow. Management of the chest tube per surgery. (3) Pneumonia Qualifiers: Pneumonia type: due to unspecified organism Laterality: left Is this a current diagnosis for this admission?: Yes Plan: 05/11/2020 Similar presentation to his January admission. Blood cultures were drawn. I have asked for a sputum culture as he has a productive cough. Will receive IV antibiotics. 05/12/2020 A sputum specimen was able to be obtained. Gram stain is pending. This will help identify an offending organism hopefully. CT scan report felt that the patient had atelectasis more than an infiltrate but because he was coughing up suh sputum I will continue the antibiotic therapy pending culture results. (4) Cough Is this a current diagnosis for this admission?: Yes Plan: 05/11/2020 No coughing fits. We will utilize mucolytic's. Cough suppressants if needed. 05/12/2020 No coughing but improved (5) Lactic acidemia Is this a current diagnosis for this admission?: Yes Plan: 05/11/2020 Secondary to infection. 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 We will perform Accu-Cheks and have sliding scale coverage as he will be on steroids. 05/12/2020 Reasonable control with diabetic diet. I will resume patient's metformin. (7) Leukocytosis Qualifiers: Leukocytosis type: unspecified Qualified Code(s): D72.829 - Elevated white blood cell count, unspecified Is this a current diagnosis for this admission?: Yes Plan: 05/11/2020 Secondary to infection. Monitor with serial blood tests. Should normalize with antibiotics. 05/12/2020 Improved but not quite normal. Continue antibiotics. Recheck tomorrow. (8) Hypertension Qualifiers: Hypertension type: essential hypertension Qualified Code(s): I10 - Essential (primary) hypertension Is this a current diagnosis for this admission?: Yes Plan: 05/11/2020 Monitor on telemetry. Administer medications and vital signs every 4 hours. 05/12/2020 Good blood pressure control on current regimen. No changes. - Time Time Spent with patient: Less than 15 minutes Medications reviewed and adjusted accordingly: Yes Anticipated discharge: Home
[2020-05-12] MEDS: HYDROCHLOROTHIAZIDE 12.5 MG TABLET PO SCH (14:11)
--- NOTE | 2020-05-12 18:13 | PDOC PROGRESS REPORT ---
Subjective Progress Note for:: 05/12/20 Subjective:: 80 y/o M admitted with bronchitis and spontaneous PTX on the left. He is doing well today. His pain is controlled. He denies SOB or excessive chest pain. He also denies fevers, chills, nausea, vomiting, orthostasis, abdominal pain, dizziness, blurry vision, headache. Reason For Visit: PNEUMONIA,ACUTE RESPIRATORY FAILURE WITH HYPOXIA, Physical Exam Vital Signs: Temp Pulse Resp BP Pulse Ox 97.6 F 74 16 117/62 93 05/12/20 16:00 05/12/20 16:15 05/12/20 16:15 05/12/20 16:00 05/12/20 16:15 Intake & Output 05/11/20 05/12/20 05/13/20 06:59 06:59 06:59 Intake Total 2400 920 Output Total 600 Balance 1800 920 Weight 97.9 kg General appearance: PRESENT: no acute distress, cooperative Head exam: PRESENT: atraumatic, normocephalic Eye exam: PRESENT: EOMI, PERRLA. ABSENT: scleral icterus Mouth exam: PRESENT: moist, neck supple Neck exam: ABSENT: meningismus, tenderness, thyromegaly, tracheal deviation Respiratory exam: PRESENT: chest wall tenderness - left sided, unlabored, other - no air leak. CT to suction.. ABSENT: tachypnea, wheezes Cardiovascular exam: ABSENT: tachycardia GI/Abdominal exam: PRESENT: soft. ABSENT: distended, firm, tenderness Rectal exam: PRESENT: deferred Extremities exam: ABSENT: clubbing Neurological exam: PRESENT: alert, awake, oriented to person, oriented to place, oriented to time, oriented to situation Psychiatric exam: ABSENT: agitated, anxious, depressed Focused psych exam: ABSENT: delusional Skin exam: ABSENT: cyanosis, erythema, jaundice Results Laboratory Results: 05/12/20 04:38 05/12/20 04:38 05/11/20 05/12/20 05/12/20 21:25 04:38 04:38 WBC 12.6 H RBC 5.48 Hgb 15.7 Hct 46.8 MCV 85 MCH 28.7 MCHC 33.6 RDW 15.4 H Plt Count 383 Seg Neutrophils % 69.8 Sodium 136.1 L Potassium 4.2 Chloride 105 Carbon Dioxide 23 Anion Gap 8 BUN 13 Creatinine 0.78 Est GFR ( Amer) > 60 Glucose 131 H Lactic Acid 1.4 Calcium 9.4 05/12/20 04:38 WBC RBC Hgb Hct MCV MCH MCHC RDW Plt Count Seg Neutrophils % Sodium Potassium Chloride Carbon Dioxide Anion Gap BUN Creatinine Est GFR ( Amer) Glucose Lactic Acid 0.9 Calcium Impressions: Chest X-Ray 05/11/20 15:52 IMPRESSION: Lingular and left lower lobe airspace opacities concerning for pneumonia. Chest CT 05/11/20 17:24 IMPRESSION: 1. Moderate left pneumothorax with atelectasis in the left lower lobe. Findings were called to Dr. Simms on 05/11/2020 at 1916 hours. 2. 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 There is no focal consolidation. 3. Moderate hepatic steatosis. Assessment & Plan - Diagnosis (1) Spontaneous pneumothorax Is this a current diagnosis for this admission?: Yes - Plan Summary Plan Summary: 80 y/o M with a spontaneous PTX s/p left chest tube insertion. He is doing well. Leave CT to suction today. Repeat x-rays tomorrow. Likely transition CT to water seal soon. Hopefully CT will come out in next 24-48 hours. Surgery will follow closely.
[2020-05-12] MEDS: GUAIFENESIN SYRP 200 MG/10 ML UDC PO PRN (21:30)
[2020-05-12] MEDS: MONTELUKAST SODIUM 10 MG TABLET PO SCH (21:30)
[2020-05-13] MEDS: KETOROLAC TROMETHAMINE INJ/PF 30 MG/1 ML SDV IV PRN ×4 (00:11→19:48)
[2020-05-13] MEDS: IPRATROPIUM/ALBUTEROL 0.5-2.5 MG/3 ML AMPUL NEB SCH ×3 (00:13→16:21)
[2020-05-13 06:14] LABS: ABSOLUTE BASOPHILS # (AUTO) 0.1 10^3/uL (0.0-0.2); ABSOLUTE EOSINOPHILS # (AUTO) 0.5 10^3/uL (0.0-0.6); ABSOLUTE LYMPHOCYTES (AUTO) 2.3 10^3/uL (0.5-4.7); ABSOLUTE MONOCYTES (AUTO) 1.3 10^3/uL (0.1-1.4); ABSOLUTE NEUT (AUTO) 4.8 10^3/uL (1.7-8.2); BASOPHILS % (AUTO) 1.1 % (0-2); EOSINOPHILS % (AUTO) 5.8 % (0-6); HEMATOCRIT 43.9 % (37.9-51.0); HEMOGLOBIN 15.1 g/dL (13.5-17.0); LYMPHOCYTES % (AUTO) 25.1 % (13-45); MEAN CORPUSCULAR HEMOGLOBIN 29.2 pg (27.0-33.4); MEAN CORPUSCULAR HGB CONC 34.5 g/dL (32.0-36.0); MEAN CORPUSCULAR VOLUME 85 fl (80-97); MONOCYTES % (AUTO) 14.9 % (3-13); PLATELET COUNT 339 10^3/uL (150-450); RED BLOOD COUNT 5.17 10^6/uL (4.35-5.55); RED CELL DISTRIBUTION WIDTH 15.3 % (11.5-14.0); SEGMENTED NEUTROPHILS % (AUTO) 53.1 % (42-78); TOTAL CELLS COUNTED % (AUTO) 100 %
[2020-05-13 06:35] LABS: ANION GAP 9 (5-19); BLOOD UREA NITROGEN 16 mg/dL (7-20); CALCIUM 9.4 mg/dL (8.4-10.2); CARBON DIOXIDE 24 mmol/L (22-30); CHLORIDE 103 mmol/L (98-107); GLUCOSE 122 mg/dL (75-110); POTASSIUM 4.1 mmol/L (3.6-5.0)
[2020-05-13] MEDS: INSULIN REG, HUMAN 100 UNIT/ML 3 ML VIAL (PYX) SUBCUT SCH ×4 (07:27→21:46)
--- NOTE | 2020-05-13 08:50 | RADIOLOGY REPORT (SQ) ---
EXAM DESCRIPTION: CHEST SINGLE VIEW IMAGES COMPLETED DATE/TIME: 05/13/2020 8:17 am REASON FOR STUDY: ptx COMPARISON: 05/11/2020 EXAM PARAMETERS: NUMBER OF VIEWS: One view. TECHNIQUE: Single frontal radiographic view of the chest acquired. RADIATION DOSE: NA LIMITATIONS: None. FINDINGS: LUNGS AND PLEURA: Large bore right-sided chest tube proximal side port is external to the thoracic cavity. . No appreciable pneumothorax. No new airspace disease. No significant effusion. MEDIASTINUM AND HILAR STRUCTURES: No masses. Contour normal. HEART AND VASCULAR STRUCTURES: Heart normal in size. Normal vasculature. BONES: No acute findings. HARDWARE: Mild retraction of the large-bore left-sided chest tube with proximal side-port external to the thoracic cavity. OTHER: No other significant finding. IMPRESSION: Mild retraction of the large bore left-sided chest tube with proximal side-port external to the thoracic cavity. No appreciable pneumothorax. TECHNICAL DOCUMENTATION: JOB ID: [id number] 2010 [employer]- All Rights Reserved Reading location - IP/workstation name: [email or web address]
--- NOTE | 2020-05-13 09:18 | PDOC PROGRESS REPORT ---
Subjective Progress Note for:: 05/13/20 Reason For Visit: PNEUMONIA,ACUTE RESPIRATORY FAILURE WITH HYPOXIA, Patient doing well; robust cough. No shortness of breath. Physical Exam Vital Signs: Temp Pulse Resp BP Pulse Ox 97.9 F 65 16 134/67 H 94 05/13/20 07:34 05/13/20 08:23 05/13/20 08:23 05/13/20 07:34 05/13/20 08:23 Intake & Output 05/12/20 05/13/20 05/14/20 06:59 06:59 06:59 Intake Total 2400 2806 486 Output Total 600 1600 Balance 1800 1206 486 Weight 97.9 kg 97.9 kg General appearance: PRESENT: no acute distress Respiratory exam: PRESENT: other - Patient has good productive cough; chest tube drainage receptacle inspected. There is no airleak. Total drainage less than 100 cc since chest tube insertion. Results Laboratory Results: 05/13/20 05:29 05/13/20 05:29 05/13/20 05/13/20 05:29 05:29 WBC 9.0 RBC 5.17 Hgb 15.1 Hct 43.9 MCV 85 MCH 29.2 MCHC 34.5 RDW 15.3 H Plt Count 339 Seg Neutrophils % 53.1 Sodium 135.6 L Potassium 4.1 Chloride 103 Carbon Dioxide 24 Anion Gap 9 BUN 16 Creatinine 0.81 Est GFR ( Amer) > 60 Glucose 122 H Calcium 9.4 Magnesium 2.0 Impressions: Chest CT 05/11/20 17:24 IMPRESSION: 1. Moderate left pneumothorax with atelectasis in the left lower lobe. Findings were called to Dr. Simms on 05/11/2020 at 1916 hours. 2. 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 There is no focal consolidation. 3. Moderate hepatic steatosis. Chest X-Ray 05/13/20 06:00 IMPRESSION: Mild retraction of the large bore left-sided chest tube with proximal side-port external to the thoracic cavity. No appreciable pneumothorax. Assessment & Plan - Diagnosis (1) Pneumothorax on left Plan: Patient is 2 days status post insertion of left 28 [place] thoracostomy tube with appropriate expansion of left pneumothorax, no air leak. Chest x-ray this morning shows lung expanded. Thorax. Recommendations: 1. [facility] 2. Ambulate in hallways 3. If patient doing well this afternoon, will consider chest tube removal. 4. Discussed the above with nursing staff. - Time Time Spent: 30 to 50 Minutes Medications reviewed and adjusted accordingly: Yes Anticipated discharge: Home
[2020-05-13] MEDS: FAMOTIDINE 20 MG TABLET PO SCH ×2 (09:34→21:37)
[2020-05-13] MEDS: HYDROCHLOROTHIAZIDE 12.5 MG TABLET PO SCH (09:34)
[2020-05-13] MEDS: GUAIFENESIN 600 MG TABLET.SA PO SCH ×2 (09:34→21:37)
[2020-05-13] MEDS: METFORMIN HCL 850 MG TABLET PO SCH ×2 (09:34→17:19)
[2020-05-13] MEDS: ENOXAPARIN SODIUM INJ 40 MG/0.4 ML DISP.SYRIN SUBCUT SCH (09:35)
[2020-05-13] MEDS: CEFEPIME 1 GM/D5W RTU 1 GM/50 ML RTUPB IV SCH ×2 (09:35→21:37)
[2020-05-13] MEDS: AMLODIPINE BESYLATE 5 MG TABLET PO SCH (09:35)
[2020-05-13] MEDS: LOSARTAN POTASSIUM 50 MG TABLET PO SCH (09:35)
[2020-05-13] MEDS: AZITHROMYCIN 500 MG in DEXTROSE 5%-WATER 250 ML IV SCH (10:28)
--- NOTE | 2020-05-13 12:06 | PDOC PROGRESS REPORT ---
Subjective Progress Note for:: 05/13/20 Subjective:: I spoke to Dr. Randle earlier. We are going to put the chest tube to waterseal and monitor. If the chest tube comes out tonight and repeat x-ray tomorrow is stable the patient will likely go home. Reason For Visit: PNEUMONIA,ACUTE RESPIRATORY FAILURE WITH HYPOXIA, Physical Exam Vital Signs: Temp Pulse Resp BP Pulse Ox 97.9 F 65 16 134/67 H 94 05/13/20 07:34 05/13/20 08:23 05/13/20 08:23 05/13/20 07:34 05/13/20 08:23 Intake & Output 05/12/20 05/13/20 05/14/20 06:59 06:59 06:59 Intake Total 2400 2806 786 Output Total 600 1600 Balance 1800 1206 786 Weight 97.9 kg 97.9 kg General appearance: PRESENT: cooperative, mild distress, well-developed, well- nourished, other - Patient is sitting up in the chair. He appears fairly comfortable. Only slight discomfort from the chest tube. Head exam: PRESENT: atraumatic, normocephalic Mouth exam: PRESENT: moist, tongue midline Respiratory exam: PRESENT: clear to auscultation vicki, symmetrical, unlabored, other - Still with very congested cough. ABSENT: rales, rhonchi, tachypnea, wheezes Cardiovascular exam: PRESENT: RRR, +S1, +S2 GI/Abdominal exam: PRESENT: normal bowel sounds, soft. ABSENT: guarding, rebound, tenderness Rectal exam: PRESENT: deferred Gentrourinary exam: ABSENT: indwelling catheter Extremities exam: ABSENT: pedal edema Musculoskeletal exam: PRESENT: ambulatory, normal inspection Neurological exam: PRESENT: alert, awake, oriented to person, oriented to place, oriented to time, oriented to situation, CN II-XII grossly intact. ABSENT: altered Psychiatric exam: PRESENT: appropriate affect. ABSENT: agitated, anxious Focused psych exam: ABSENT: delusional, paranoid, restlessness Results Laboratory Results: 05/13/20 05:29 05/13/20 05:29 05/13/20 05/13/20 05:29 05:29 WBC 9.0 RBC 5.17 Hgb 15.1 Hct 43.9 MCV 85 MCH 29.2 MCHC 34.5 RDW 15.3 H Plt Count 339 Seg Neutrophils % 53.1 Sodium 135.6 L Potassium 4.1 Chloride 103 Carbon Dioxide 24 Anion Gap 9 BUN 16 Creatinine 0.81 Est GFR ( Amer) > 60 Glucose 122 H Calcium 9.4 Magnesium 2.0 05/12/20 14:27 Sputum Gram Stain - Final 05/12/20 14:27 Sputum Sputum Culture - Final Impressions: Chest CT 05/11/20 17:24 IMPRESSION: 1. Moderate left pneumothorax with atelectasis in the left lower lobe. Findings were called to Dr. Simms on 05/11/2020 at 1916 hours. 2. 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 There is no focal consolidation. 3. Moderate hepatic steatosis. Chest X-Ray 05/13/20 06:00 IMPRESSION: Mild retraction of the large bore left-sided chest tube with proximal side-port external to the thoracic cavity. No appreciable pneumothorax. Assessment and Plan - Diagnosis (1) Acute respiratory failure with hypoxia Is this a current diagnosis for this admission?: Yes Plan: 05/11/2020 Supplemental oxygen to keep oxygen saturation greater than or equal to 90%. Nebulizers scheduled and as needed. 05/12/2020 Currently back on room air. Respiratory failure with hypoxia has resolved. 05/13/2020 Stable on room air (2) Pneumothorax on left Is this a current diagnosis for this admission?: Yes Plan: Patient is 2 days status post insertion of left 28 Slovak thoracostomy tube with appropriate expansion of left pneumothorax, no air leak. Chest x-ray this morning shows lung expanded. Thorax. Recommendations: 1. We will place chest tube to waterseal. 2. Ambulate in hallways 3. If patient doing well this afternoon, will consider chest tube removal. 4. Discussed the above with nursing staff. 05/13/2020 Plan as per surgery as noted above. (3) Pneumonia Qualifiers: Pneumonia type: due to unspecified organism Laterality: left Is this a current diagnosis for this admission?: Yes Plan: 05/11/2020 Similar presentation to his January admission. Blood cultures were drawn. I have asked for a sputum culture as he has a productive cough. Will receive IV antibiotics. 05/12/2020 A sputum specimen was able to be obtained. Gram stain is pending. This will help identify an offending organism hopefully. CT scan report felt that the patient had atelectasis more than an infiltrate but because he was coughing up suh sputum I will continue the antibiotic therapy pending culture results. 05/13/2020 The patient's last admission he did have a positive sputum culture for strep pneumoniae. This sputum was considered inadequate as it was felt to be more saliva. The patient is very frustrated. He has had pneumonia multiple times over the last year. He states that he has had PFTs with a cook box filler in [place]. He was told he has asthma. The patient does not believe that he has asthma. I do not believe he has ever had a bronchoscopy. I suggested he obtain a second opinion. There are cook box filler either in [place] permanently or rotating [facility] [place] [facility]. Once stable and discharged he states that he will look for a new cook box filler. (4) Cough Is this a current diagnosis for this admission?: Yes Plan: 05/11/2020 No coughing fits. We will utilize mucolytic's. Cough suppressants if needed. 05/12/2020 No coughing but improved 05/13/2020 The patient was not coughing yesterday however today he had multiple episodes of a very congested cough. He was not expectorating. We will continue mucolytic's. Some of this might be resolving atelectasis from the pneumothorax. (5) Lactic acidemia Is this a current diagnosis for this admission?: Yes Plan: 05/11/2020 Secondary to infection. IV fluids and follow-up lactic acid level 05/12/2020 Resolved with IV fluids (6) Hyperglycemia due to type 2 diabetes mellitus Qualifiers: Diabetes mellitus shelter insulin use: without terminal clerk use Qualified Code(s): E11.65 - Type 2 diabetes mellitus with hyperglycemia Is this a current diagnosis for this admission?: Yes Plan: 05/11/2020 He has a prescription for his diabetes but does not take the medicine. We will perform Accu-Cheks and have sliding scale coverage as he will be on steroids. 05/12/2020 Reasonable control with diabetic diet. I will resume patient's metformin. 05/13/2020 Patient is back on metformin. Continue to monitor Accu-Cheks. (7) Leukocytosis Qualifiers: Leukocytosis type: unspecified Qualified Code(s): D72.829 - Elevated white blood cell count, unspecified Is this a current diagnosis for this admission?: Yes Plan: 05/11/2020 Secondary to infection. Monitor with serial blood tests. Should normalize with antibiotics. 05/12/2020 Improved but not quite normal. Continue antibiotics. Recheck tomorrow. 05/13/2020 White count is now normal. Leukocytosis resolved. (8) Hypertension Qualifiers: Hypertension type: essential hypertension Qualified Code(s): I10 - Essential (primary) hypertension Is this a current diagnosis for this admission?: Yes Plan: 05/11/2020 Monitor on telemetry. Administer medications and vital signs every 4 hours. 05/12/2020 Good blood pressure control on current regimen. No changes. 05/13/2020 Acceptable blood pressure control. Continue current regimen. - Time Time Spent with patient: 15-24 minutes Medications reviewed and adjusted accordingly: Yes Anticipated discharge: Home Within: within 48 hours
[2020-05-13] MEDS: GUAIFENESIN SYRP 200 MG/10 ML UDC PO PRN (21:37)
[2020-05-13] MEDS: MONTELUKAST SODIUM 10 MG TABLET PO SCH (21:37)
[2020-05-14] MEDS: IPRATROPIUM/ALBUTEROL 0.5-2.5 MG/3 ML AMPUL NEB SCH ×4 (00:41→23:54)
[2020-05-14] MEDS: KETOROLAC TROMETHAMINE INJ/PF 30 MG/1 ML SDV IV PRN ×3 (02:44→16:24)
[2020-05-14] MEDS: INSULIN REG, HUMAN 100 UNIT/ML 3 ML VIAL (PYX) SUBCUT SCH ×4 (08:01→22:16)
[2020-05-14] MEDS: CEFEPIME 1 GM/D5W RTU 1 GM/50 ML RTUPB IV SCH ×2 (09:02→22:08)
[2020-05-14] MEDS: HYDROCHLOROTHIAZIDE 12.5 MG TABLET PO SCH (09:03)
[2020-05-14] MEDS: METFORMIN HCL 850 MG TABLET PO SCH ×2 (09:03→19:25)
[2020-05-14] MEDS: ENOXAPARIN SODIUM INJ 40 MG/0.4 ML DISP.SYRIN SUBCUT SCH (09:03)
[2020-05-14] MEDS: FAMOTIDINE 20 MG TABLET PO SCH ×2 (09:03→22:07)
[2020-05-14] MEDS: LOSARTAN POTASSIUM 50 MG TABLET PO SCH (09:03)
[2020-05-14] MEDS: GUAIFENESIN 600 MG TABLET.SA PO SCH ×2 (09:04→22:07)
[2020-05-14] MEDS: AMLODIPINE BESYLATE 5 MG TABLET PO SCH (09:04)
--- NOTE | 2020-05-14 09:24 | RADIOLOGY REPORT (SQ) ---
EXAM DESCRIPTION: CHEST SINGLE VIEW IMAGES COMPLETED DATE/TIME: 05/14/2020 8:29 am REASON FOR STUDY: f/u ptx COMPARISON: CT chest 05/11/2020 Chest films 05/11/2020, 05/13/2020 EXAM PARAMETERS: NUMBER OF VIEWS: One view. TECHNIQUE: Single frontal radiographic view of the chest acquired. RADIATION DOSE: NA LIMITATIONS: None. FINDINGS: LUNGS AND PLEURA: Left large bore chest tube in place, tube tip is projected over the pleu ral space, side-port over the lateral rib margin. Trace left lateral chest wall air. No pneumothora x. This finding was called to Dr Goldsmith, 0915 hours 05/14/2020 Minimal right basilar bandlike atelectasis. No right pneumothorax or pleural effusion. MEDIASTINUM AND HILAR STRUCTURES: No masses. Contour normal. HEART AND VASCULAR STRUCTURES: Heart normal in size. Normal vasculature. BONES: No acute findings. HARDWARE: Large bore left chest tube, tip over the pleural space, side-port over the lateral left rib margin. Trace left chest wall air OTHER: No other significant finding. IMPRESSION: Left-sided large bore chest tube in place, no pneumothorax. Chest tube side port over t he lateral rib margin. Findings discussed with Dr. Goldsmith TECHNICAL DOCUMENTATION: JOB ID: [id number] 2010 [employer]- All Rights Reserved Reading location - IP/workstation name: [email or web address]
--- NOTE | 2020-05-14 09:55 | PDOC PROGRESS REPORT ---
Subjective Progress Note for:: 05/14/20 Subjective:: Feels well. No shortness of breath. Some discomfort at chest tube site. Reason For Visit: PNEUMONIA,ACUTE RESPIRATORY FAILURE WITH HYPOXIA, Physical Exam Vital Signs: Temp Pulse Resp BP Pulse Ox 97.9 F 65 16 146/89 H 96 05/14/20 07:21 05/14/20 07:21 05/14/20 07:21 05/14/20 07:21 05/14/20 07:21 Intake & Output 05/13/20 05/14/20 05/15/20 06:59 06:59 06:59 Intake Total 2806 1668 Output Total 1600 1300 Balance 1206 368 Weight 97.9 kg 97.9 kg General appearance: PRESENT: no acute distress, cooperative Respiratory exam: PRESENT: clear to auscultation vicki, other Cardiovascular exam: PRESENT: RRR Results Laboratory Results: 05/13/20 05:29 05/13/20 05:29 05/12/20 14:27 Sputum Gram Stain - Final 05/12/20 14:27 Sputum Sputum Culture - Final Impressions: Chest CT 05/11/20 17:24 IMPRESSION: 1. Moderate left pneumothorax with atelectasis in the left lower lobe. Findings were called to Dr. Simms on 05/11/2020 at 1916 hours. 2. 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 There is no focal consolidation. 3. Moderate hepatic steatosis. Chest X-Ray 05/14/20 00:00 IMPRESSION: Left-sided large bore chest tube in place, no pneumothorax. Chest tube side port over the lateral rib margin. Findings discussed with Dr. Goldsmith Assessment & Plan - Diagnosis (1) Pneumothorax on left Is this a current diagnosis for this admission?: Yes Plan: Status post left chest tube placement. Chest x-ray today demonstrates that the chest tube may have been pulled slightly with the side-port at the chest wall. There may be a very tiny apical pneumothorax. In light of the poor chest tube position the chest tube was pulled today. Will check chest x-ray now and later this afternoon. Possible discharge in the afternoon.
[2020-05-14] MEDS: AZITHROMYCIN 500 MG in DEXTROSE 5%-WATER 250 ML IV SCH (10:48)
--- NOTE | 2020-05-14 10:55 | RADIOLOGY REPORT (SQ) ---
EXAM DESCRIPTION: CHEST SINGLE VIEW IMAGES COMPLETED DATE/TIME: 05/14/2020 10:30 am REASON FOR STUDY: s/p ct pull COMPARISON: 05/14/2020 EXAM PARAMETERS: NUMBER OF VIEWS: One view. TECHNIQUE: Single frontal radiographic view of the chest acquired. RADIATION DOSE: NA LIMITATIONS: None. FINDINGS: LUNGS AND PLEURA: Small left apical pneumothorax. No focal opacities. No pleural effusio n evident. MEDIASTINUM AND HILAR STRUCTURES: No masses. Contour normal. HEART AND VASCULAR STRUCTURES: Heart normal in size. Normal vasculature. BONES: No acute findings. HARDWARE: Interval removal of a left hemithorax chest tube. OTHER: No other significant finding. IMPRESSION: Status post left hemithorax chest tube removal. Small left apical pneumothorax. TECHNICAL DOCUMENTATION: JOB ID: [id number] 2010 [employer]- All Rights Reserved Reading location - IP/workstation name: [email or web address]
--- NOTE | 2020-05-14 16:26 | RADIOLOGY REPORT (SQ) ---
EXAM DESCRIPTION: CHEST SINGLE VIEW IMAGES COMPLETED DATE/TIME: 05/14/2020 4:12 pm REASON FOR STUDY: f/u ptx COMPARISON: 05/14/2020 EXAM PARAMETERS: NUMBER OF VIEWS: One view. TECHNIQUE: Single frontal radiographic view of the chest acquired. RADIATION DOSE: NA LIMITATIONS: None. FINDINGS: LUNGS AND PLEURA: Stable small left apical pneumothorax measuring 6.4 mm maximally. No ne w airspace disease. No pleural effusion. MEDIASTINUM AND HILAR STRUCTURES: No masses. Contour normal. HEART AND VASCULAR STRUCTURES: Heart normal in size. Normal vasculature. BONES: No acute findings. HARDWARE: None in the chest. OTHER: Small volume subcutaneous gas along the left lateral chest wall. IMPRESSION: Stable small left apical pneumothorax. TECHNICAL DOCUMENTATION: JOB ID: [id number] 2010 [employer]- All Rights Reserved Reading location - IP/workstation name: [email or web address]
--- NOTE | 2020-05-14 17:08 | PDOC PROGRESS REPORT ---
Subjective Progress Note for:: 05/14/20 Subjective:: 80 year old male who was admitted by this provider on February 05, 2020. He was discharged on February 07. The patient was admitted for pneumonia at that time. He has a history of diabetes and chronic kidney disease. He has a history of hypertension. He denies COPD but he has been admitted for pneumonia twice in 6 months and it appears that there is an emphysematous bleb on his chest x-ray. Chest CT is pending. Slightly elevated white blood cell count at 13,000. His lactic acid is slightly elevated but under 3.0. He has a productive cough and is exhibiting some increased work of breathing. He was stable enough to drive himself to the hospital. He will be admitted to the hospitalist service. We will give nebulizer treatments, antibiotics and possibly intravenous steroids. We will continue his other medications and treat his comorbidities. [id number]-old male admitted with a pneumothorax chest tube was removed today and there is a heavy bleeding and developed a hematoma. Follow-up chest x-ray indicate persistent of the apical pneumothorax. Discharge will be on hold plan is to repeat the labs tomorrow. Patient agreed to stay overnight. Reason For Visit: PNEUMONIA,ACUTE RESPIRATORY FAILURE WITH HYPOXIA, Physical Exam Vital Signs: Temp Pulse Resp BP Pulse Ox 97.7 F 71 18 129/79 H 96 05/14/20 15:03 05/14/20 15:03 05/14/20 15:03 05/14/20 15:03 05/14/20 15:03 Intake & Output 05/13/20 05/14/20 05/15/20 06:59 06:59 06:59 Intake Total 2806 1668 720 Output Total 1600 1300 400 Balance 1206 368 320 Weight 97.9 kg 97.9 kg General appearance: PRESENT: no acute distress, well-developed Head exam: PRESENT: atraumatic Eye exam: PRESENT: PERRLA Ear exam: PRESENT: normal external ear exam Mouth exam: PRESENT: neck supple Teeth exam: PRESENT: poor dentation Neck exam: ABSENT: carotid bruit, JVD, lymphadenopathy, thyromegaly Respiratory exam: PRESENT: decreased breath sounds Cardiovascular exam: PRESENT: RRR. ABSENT: diastolic murmur, rubs, systolic murmur Pulses: PRESENT: normal dorsalis pedis pul GI/Abdominal exam: PRESENT: normal bowel sounds, soft. ABSENT: distended, guarding, mass, organolmegaly, rebound, tenderness Rectal exam: PRESENT: deferred Extremities exam: PRESENT: full ROM. ABSENT: calf tenderness, clubbing, pedal edema Neurological exam: PRESENT: alert, awake, oriented to person, oriented to place, oriented to time, oriented to situation, CN II-XII grossly intact. ABSENT: motor sensory deficit Psychiatric exam: PRESENT: appropriate affect, normal mood. ABSENT: homicidal ideation, suicidal ideation Results Laboratory Results: 05/13/20 05:29 05/13/20 05:29 Impressions: Chest CT 05/11/20 17:24 IMPRESSION: 1. Moderate left pneumothorax with atelectasis in the left lower lobe. Findings were called to Dr. Simms on 05/11/2020 at 1916 hours. 2. 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 There is no focal consolidation. 3. Moderate hepatic steatosis. Chest X-Ray 05/14/20 16:00 IMPRESSION: Stable small left apical pneumothorax. Assessment and Plan - Diagnosis (1) Acute respiratory failure with hypoxia Is this a current diagnosis for this admission?: Yes Plan: 05/11/2020 Supplemental oxygen to keep oxygen saturation greater than or equal to 90%. Nebulizers scheduled and as needed. 05/12/2020 Currently back on room air. Respiratory failure with hypoxia has resolved. 05/13/2020 Stable on room air 05/14/2020-pulse ox is 96% on room air. Stable. Acute respiratory failure with hypoxia resolved. (2) Pneumothorax on left Is this a current diagnosis for this admission?: Yes Plan: Status post left chest tube placement. Chest x-ray today demonstrates that the chest tube may have been pulled slightly with the side-port at the chest wall. There may be a very tiny apical pneumothorax. In light of the poor chest tube position the chest tube was pulled today. Will check chest x-ray now and later this afternoon. Possible discharge in the afternoon. 05/14/2020-patient admitted with a left pneumothorax status post chest tube placement and removal. Developed hematoma today. Follow-up chest x-ray is shows small left apical pneumothorax. (3) Pneumonia Qualifiers: Pneumonia type: due to unspecified organism Laterality: left Is this a current diagnosis for this admission?: Yes Plan: 05/11/2020 Similar presentation to his January admission. Blood cultures were drawn. I have asked for a sputum culture as he has a productive cough. Will receive IV antibiotics. 05/12/2020 A sputum specimen was able to be obtained. Gram stain is pending. This will help identify an offending organism hopefully. CT scan report felt that the patient had atelectasis more than an infiltrate but because he was coughing up suh sputum I will continue the antibiotic therapy pending culture results. 05/13/2020 The patient's last admission he did have a positive sputum culture for strep pn eumoniae. This sputum was considered inadequate as it was felt to be more saliva. The patient is very frustrated. He has had pneumonia multiple times over the last year. He states that he has had PFTs with a restaurant line server in [place]. He was told he has asthma. The patient does not believe that he has asthma. I do not believe he has ever had a bronchoscopy. I suggested he obtain a second opinion. There are restaurant line server either in [place] permanently or rotating through [place] clinics for the larger medical facilities. Once stable and discharged he states that he will look for a new restaurant line server. (4) Cough Is this a current diagnosis for this admission?: Yes Plan: 05/11/2020 No coughing fits. We will utilize mucolytic's. Cough suppressants if needed. 05/12/2020 No coughing but improved 05/13/2020 The patient was not coughing yesterday however today he had multiple episodes of a very congested cough. He was not expectorating. We will continue mucolytic's. Some of this might be resolving atelectasis from the pneumothorax. (5) Lactic acidemia Is this a current diagnosis for this admission?: Yes Plan: 05/11/2020 Secondary to infection. IV fluids and follow-up lactic acid level 05/12/2020 Resolved with IV fluids (6) Hyperglycemia due to type 2 diabetes mellitus Qualifiers: Diabetes mellitus lobsterman insulin use: without jail use Qualified Code(s): E11.65 - Type 2 diabetes mellitus with hyperglycemia Is this a current diagnosis for this admission?: Yes Plan: 05/11/2020 He has a prescription for his diabetes but does not take the medicine. We will perform Accu-Cheks and have sliding scale coverage as he will be on steroids. 05/12/2020 Reasonable control with diabetic diet. I will resume patient's metformin. 05/13/2020 Patient is back on metformin. Continue to monitor Accu-Cheks. (7) Leukocytosis Qualifiers: Leukocytosis type: unspecified Qualified Code(s): D72.829 - Elevated white blood cell count, unspecified Is this a current diagnosis for this admission?: Yes Plan: 05/11/2020 Secondary to infection. Monitor with serial blood tests. Should normalize with antibiotics. 05/12/2020 Improved but not quite normal. Continue antibiotics. Recheck tomorrow. 05/13/2020 White count is now normal. Leukocytosis resolved. (8) Hypertension Qualifiers: Hypertension type: essential hypertension Qualified Code(s): I10 - Essential (primary) hypertension Is this a current diagnosis for this admission?: Yes
--- NOTE | 2020-05-14 17:55 | PDOC PROGRESS REPORT ---
Subjective Progress Note for:: 05/14/20 Subjective:: No complaints Reason For Visit: PNEUMONIA,ACUTE RESPIRATORY FAILURE WITH HYPOXIA, Physical Exam Vital Signs: Temp Pulse Resp BP Pulse Ox 97.7 F 70 16 129/79 H 96 05/14/20 15:03 05/14/20 17:06 05/14/20 17:06 05/14/20 15:03 05/14/20 17:06 Intake & Output 05/13/20 05/14/20 05/15/20 06:59 06:59 06:59 Intake Total 2806 1668 720 Output Total 1600 1300 400 Balance 1206 368 320 Weight 97.9 kg 97.9 kg General appearance: PRESENT: no acute distress Respiratory exam: PRESENT: clear to auscultation vicki, other - Chest tube removal site dressings are soaked with blood. Therefore these dressings were removed and there is a fresh clot with oozing. Manual compression applied for about 10 minutes and there appears to be hemostasis. Occlusive dressings reapplied. Cardiovascular exam: PRESENT: RRR Results Laboratory Results: 05/13/20 05:29 05/13/20 05:29 Impressions: Chest CT 05/11/20 17:24 IMPRESSION: 1. Moderate left pneumothorax with atelectasis in the left lower lobe. Findings were called to Dr. Simms on 05/11/2020 at 1916 hours. 2. 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 There is no focal consolidation. 3. Moderate hepatic steatosis. Chest X-Ray 05/14/20 16:00 IMPRESSION: Stable small left apical pneumothorax. Assessment & Plan - Diagnosis (1) Pneumothorax on left Is this a current diagnosis for this admission?: Yes Plan: Status post initial left chest tube placement. Chest tube was removed at this morning. Immediately after the removal, chest x-ray revealed a small apical pneumothorax. Follow-up chest x-ray this afternoon demonstrates the pneumothorax to be smaller. I do not think he has an active leak from his lung. I would have discharge the patient home today however he had bleeding at the chest tube site. It may have occurred when he had some coughing this afternoon. The bleeding appears to be under control. Will observe overnight and if okay will discharge patient home in the morning. Since he will be here, will repeat a chest x-ray in the morning as well.
[2020-05-14 20:25] LABS: HEMATOCRIT 49.8 % (37.9-51.0); HEMOGLOBIN 16.7 g/dL (13.5-17.0); MEAN CORPUSCULAR HEMOGLOBIN 28.7 pg (27.0-33.4); MEAN CORPUSCULAR HGB CONC 33.5 g/dL (32.0-36.0); MEAN CORPUSCULAR VOLUME 86 fl (80-97); PLATELET COUNT 447 10^3/uL (150-450); RED BLOOD COUNT 5.82 10^6/uL (4.35-5.55); RED CELL DISTRIBUTION WIDTH 15.6 % (11.5-14.0); WHITE BLOOD COUNT 12.7 10^3/uL (4.0-10.5)
--- NOTE | 2020-05-14 20:46 | RADIOLOGY REPORT (SQ) ---
EXAM DESCRIPTION: CT chest without IV contrast. CLINICAL HISTORY: 80 years Male Bleeding from chest tube site. Possible Hematoma. COMPARISON: Chest x-ray from today. TECHNIQUE: Axial images without IV contrast. Sagittal coronal reconstruction. This exam was performed according to our departmental dose-optimization program, which includes automated exposure control, adjustment of the mA and/or kV according to patient size and/or use of iterative reconstruction technique.. FINDINGS: Borderline 2.9 cm main pulmonary artery. Mildly aneurysmal 42 mm ascending aorta. [id number] calcifications of aortic annulus. Mildly enlarged right and left ventricles. The atria are less prominent. Presence of tiny mediastinal lymph nodes. No suspicious adenopathy. No evidence for pericardial effusion. Moderate elevation of the right hemidiaphragm. Tiny-1-2% left mid chest anterior pneumothorax. Minimal air noted inferior to the left heart. Series 4 image 60. Series 201 image 66. Differential diagnosis includes additional tiny pneumothorax versus pneumomediastinum or artifact. Bilateral lower lobe bronchial wall thickening and surrounding infiltrate slightly greater on the left. Recent discussion left chest tube removed. There is presence of air and ill-defined hemorrhagic process in the left lateral chest wall. No suspicious fluid collection. No adjacent focal pleural abnormality. Limited images of the upper abdomen demonstrate fatty liver. IMPRESSION: 1. Mildly complex process in the left lateral chest wall including air and ill-defined soft tissue suggestive of hemorrhagic changes. There is no large well-defined hematoma or drainable fluid collection. 2. Tiny left pneumothorax less than 2%. Additional air inferior to the left heart may be artifact or tiny pneumothorax or pneumomediastinum. 3. Bilateral non prominent lower lobe infiltrates and bronchial wall thickening slightly greater on the left. 4. Borderline 2.9 cm main pulmonary artery. Mildly aneurysmal 4.2 cm ascending aortic aneurysm. Calcifications of the aortic annulus. 5. Mild fatty liver.
[2020-05-14] MEDS: MONTELUKAST SODIUM 10 MG TABLET PO SCH (22:07)
[2020-05-14] MEDS: GUAIFENESIN SYRP 200 MG/10 ML UDC PO PRN (22:07)
[2020-05-14] MEDS: LIDOCAINE 5% (700 MG) TRANSDERMAL ADH..PATCH TP SCH (22:08)
[2020-05-15 00:38] LABS: HEMATOCRIT 45.1 % (37.9-51.0); HEMOGLOBIN 15.5 g/dL (13.5-17.0); MEAN CORPUSCULAR HGB CONC 34.3 g/dL (32.0-36.0); MEAN CORPUSCULAR VOLUME 85 fl (80-97); PLATELET COUNT 405 10^3/uL (150-450); RED BLOOD COUNT 5.33 10^6/uL (4.35-5.55); RED CELL DISTRIBUTION WIDTH 15.2 % (11.5-14.0); WHITE BLOOD COUNT 12.8 10^3/uL (4.0-10.5)
[2020-05-15 06:32] LABS: ABSOLUTE BASOPHILS # (AUTO) 0.1 10^3/uL (0.0-0.2); ABSOLUTE EOSINOPHILS # (AUTO) 0.9 10^3/uL (0.0-0.6); ABSOLUTE LYMPHOCYTES (AUTO) 2.7 10^3/uL (0.5-4.7); ABSOLUTE MONOCYTES (AUTO) 1.4 10^3/uL (0.1-1.4); ABSOLUTE NEUT (AUTO) 6.5 10^3/uL (1.7-8.2); BASOPHILS % (AUTO) 0.9 % (0-2); EOSINOPHILS % (AUTO) 7.7 % (0-6); HEMATOCRIT 46.2 % (37.9-51.0); HEMOGLOBIN 15.8 g/dL (13.5-17.0); LYMPHOCYTES % (AUTO) 22.9 % (13-45); MEAN CORPUSCULAR HEMOGLOBIN 28.8 pg (27.0-33.4); MEAN CORPUSCULAR HGB CONC 34.2 g/dL (32.0-36.0); MEAN CORPUSCULAR VOLUME 84 fl (80-97); MONOCYTES % (AUTO) 12.5 % (3-13); PLATELET COUNT 377 10^3/uL (150-450); RED BLOOD COUNT 5.47 10^6/uL (4.35-5.55); RED CELL DISTRIBUTION WIDTH 15.3 % (11.5-14.0); TOTAL CELLS COUNTED % (AUTO) 100 %; WHITE BLOOD COUNT 11.6 10^3/uL (4.0-10.5)
[2020-05-15 06:55] LABS: ALBUMIN 4.2 g/dL (3.5-5.0); ALKALINE PHOSPHATASE 67 U/L (38-126); ANION GAP 8 (5-19); ASPARTATE AMINO TRANSFERASE 23 U/L (17-59); BILIRUBIN,TOTAL 0.5 mg/dL (0.2-1.3); BLOOD UREA NITROGEN 25 mg/dL (7-20); CARBON DIOXIDE 25 mmol/L (22-30); CHLORIDE 101 mmol/L (98-107); GLUCOSE 112 mg/dL (75-110); POTASSIUM 4.6 mmol/L (3.6-5.0)
[2020-05-15] MEDS: INSULIN REG, HUMAN 100 UNIT/ML 3 ML VIAL (PYX) SUBCUT SCH ×2 (07:27→11:55)
[2020-05-15] MEDS: IPRATROPIUM/ALBUTEROL 0.5-2.5 MG/3 ML AMPUL NEB SCH (08:57)
[2020-05-15] MEDS: LOSARTAN POTASSIUM 50 MG TABLET PO SCH (09:23)
[2020-05-15] MEDS: CEFEPIME 1 GM/D5W RTU 1 GM/50 ML RTUPB IV SCH (09:24)
[2020-05-15] MEDS: METFORMIN HCL 850 MG TABLET PO SCH (09:24)
[2020-05-15] MEDS: HYDROCHLOROTHIAZIDE 12.5 MG TABLET PO SCH (09:24)
[2020-05-15] MEDS: LIDOCAINE 5% (700 MG) TRANSDERMAL ADH..PATCH TP SCH ×2 (09:24→09:32)
[2020-05-15] MEDS: GUAIFENESIN 600 MG TABLET.SA PO SCH (09:24)
[2020-05-15] MEDS: AMLODIPINE BESYLATE 5 MG TABLET PO SCH (09:24)
[2020-05-15] MEDS: FAMOTIDINE 20 MG TABLET PO SCH (09:24)
[2020-05-15] MEDS: ENOXAPARIN SODIUM INJ 40 MG/0.4 ML DISP.SYRIN SUBCUT SCH (09:25)
--- NOTE | 2020-05-15 10:11 | RADIOLOGY REPORT (SQ) ---
EXAM DESCRIPTION: CHEST SINGLE VIEW IMAGES COMPLETED DATE/TIME: 05/15/2020 6:17 am REASON FOR STUDY: Follow-up pneumothorax COMPARISON: Chest films 05/14/2020, multiple EXAM PARAMETERS: NUMBER OF VIEWS: One view. TECHNIQUE: Single frontal radiographic view of the chest acquired. RADIATION DOSE: NA LIMITATIONS: None. FINDINGS: LUNGS AND PLEURA: Trace left apical pneumothorax, smaller than yesterday. Platelike atelectasis right lung base. No pleural effusion. No right pneumothorax. MEDIASTINUM AND HILAR STRUCTURES: No masses. Contour normal. HEART AND VASCULAR STRUCTURES: Heart normal in size. Normal vasculature. BONES: No acute findings. HARDWARE: None in the chest. OTHER: Minimal left chest wall air, stable IMPRESSION: Trace left apical pneumothorax, smaller than 05/14/2020 1607 hours TECHNICAL DOCUMENTATION: JOB ID: [id number] 2010 [employer]- All Rights Reserved Reading location - IP/workstation name: [email or web address]
[2020-05-15] MEDS: AZITHROMYCIN 500 MG in DEXTROSE 5%-WATER 250 ML IV SCH (10:23)
--- NOTE | 2020-05-15 12:10 | PDOC PROGRESS REPORT ---
Subjective Progress Note for:: 05/15/20 Subjective:: 80 y/o M admitted with bronchitis and spontaneous PTX on the left. He is doing well today. His pain is controlled. He denies SOB or chest pain. His chest tube has been removed. He did have some bleeding at the left chest tube insertion site, however this has stopped. He denies fevers, chills, nausea, vomiting, orthostasis, abdominal pain, dizziness, blurry vision, headache. Reason For Visit: PNEUMONIA,ACUTE RESPIRATORY FAILURE WITH HYPOXIA, Physical Exam Vital Signs: Temp Pulse Resp BP Pulse Ox 98.2 F 71 16 153/84 H 96 05/15/20 07:17 05/15/20 08:59 05/15/20 08:59 05/15/20 07:17 05/15/20 08:59 Intake & Output 05/14/20 05/15/20 05/16/20 06:59 06:59 06:59 Intake Total 1668 1330 300 Output Total 1300 400 Balance 368 930 300 Weight 97.9 kg 98 kg General appearance: PRESENT: no acute distress, cooperative Head exam: PRESENT: atraumatic, normocephalic Eye exam: PRESENT: EOMI, PERRLA. ABSENT: scleral icterus Mouth exam: PRESENT: moist, neck supple Neck exam: ABSENT: meningismus, tenderness, thyromegaly, tracheal deviation Respiratory exam: PRESENT: unlabored, other - Hematoma at left chest tube insertion site. No active bleeding.. ABSENT: tachypnea, wheezes Cardiovascular exam: PRESENT: RRR. ABSENT: tachycardia GI/Abdominal exam: PRESENT: soft. ABSENT: tenderness Rectal exam: PRESENT: deferred Extremities exam: ABSENT: clubbing Musculoskeletal exam: ABSENT: deformity Neurological exam: PRESENT: alert, awake, oriented to person, oriented to place, oriented to time, oriented to situation, CN II-XII grossly intact Psychiatric exam: ABSENT: agitated, anxious, depressed Focused psych exam: ABSENT: delusional Skin exam: ABSENT: cyanosis, erythema, jaundice Results Laboratory Results: 05/15/20 06:04 05/15/20 06:04 05/14/20 05/15/20 05/15/20 19:49 00:24 06:04 WBC 12.7 H 12.8 H 11.6 H RBC 5.82 H 5.33 5.47 Hgb 16.7 15.5 15.8 Hct 49.8 45.1 46.2 MCV 86 85 84 MCH 28.7 29.0 28.8 MCHC 33.5 34.3 34.2 RDW 15.6 H 15.2 H 15.3 H Plt Count 447 405 377 Seg Neutrophils % 56.0 Sodium Potassium [place] Carbon Dioxide Anion Gap BUN Creatinine Est GFR ( Amer) Glucose Calcium Magnesium Total Bilirubin AST Alkaline Phosphatase Total Protein Albumin 05/15/20 06:04 WBC RBC Hgb Hct MCV MCH MCHC RDW Plt Count Seg Neutrophils % Sodium 134.3 L Potassium 4.6 [place] 101 Carbon Dioxide 25 Anion Gap 8 BUN 25 H Creatinine 0.88 Est GFR ( Amer) > 60 Glucose 112 H Calcium 10.0 Magnesium 2.0 Total Bilirubin 0.5 AST 23 Alkaline Phosphatase 67 Total Protein 7.0 Albumin 4.2 Impressions: Chest CT 05/14/20 00:00 IMPRESSION: 1. Mildly complex process in the left lateral chest wall including air and ill-defined soft tissue suggestive of hemorrhagic changes. There is no large well-defined hematoma or drainable fluid collection. 2. Tiny left pneumothorax less than 2%. Additional air inferior to the left heart may be artifact or tiny pneumothorax or pneumomediastinum. 3. Bilateral non prominent lower lobe infiltrates and bronchial wall thickening slightly greater on the left. 4. Borderline 2.9 cm main pulmonary artery. Mildly aneurysmal 4.2 cm ascending aortic aneurysm. Calcifications of the aortic annulus. 5. Mild fatty liver. Chest X-Ray 05/15/20 07:00 IMPRESSION: Trace left apical pneumothorax, smaller than 05/14/2020 1607 hours Assessment & Plan - Diagnosis (1) Spontaneous pneumothorax Is this a current diagnosis for this admission?: Yes - Plan Summary Plan Summary: 80 y/o M with a spontaneous PTX s/p left chest tube insertion. He is doing well, and his chest tube has been removed. He is no longer bleeding from his insertion site. His repeat x-rays showed no reaccumulation of his pneumothorax. Okay for discharge from a surgical standpoint.
[2020-05-15 12:37] VITALS: BP 117/62
--- NOTE | 2020-05-15 13:26 | PDOC DISCHARGE SUMMARY ---
Impression - Admit/DC Date/PCP Admission Date/Primary Care Provider: 05/11/20 17:52 Nitin VELÁSQUEZ MD Discharge Date: 05/15/20 - Discharge Diagnosis (1) Acute respiratory failure with hypoxia Is this a current diagnosis for this admission?: Yes (2) Pneumothorax on left Is this a current diagnosis for this admission?: Yes (3) Pneumonia Is this a current diagnosis for this admission?: Yes (4) Cough Is this a current diagnosis for this admission?: Yes (5) Lactic acidemia Is this a current diagnosis for this admission?: Yes (6) Hyperglycemia due to type 2 diabetes mellitus Is this a current diagnosis for this admission?: Yes (7) Leukocytosis Is this a current diagnosis for this admission?: Yes (8) Hypertension Is this a current diagnosis for this admission?: Yes - Assessment Summary: (1) Acute respiratory failure with hypoxia Is this a current diagnosis for this admission?: Yes Plan: 05/11/2020 Supplemental oxygen to keep oxygen saturation greater than or equal to 90%. Nebulizers scheduled and as needed. 05/12/2020 Currently back on room air. Respiratory failure with hypoxia has resolved. 05/13/2020 Stable on room air 05/14/2020-pulse ox is 96% on room air. Stable. Acute respiratory failure with hypoxia resolved. 1720-pulse ox today's 96% room air. Chest tube was removed yesterday. Follow- up chest x-ray indicated trace apical pneumothorax. Cleared by surgery for the patient to go home. (2) Pneumothorax on left Is this a current diagnosis for this admission?: Yes Plan: Status post left chest tube placement. Chest x-ray today demonstrates that the chest tube may have been pulled slightly with the side-port at the chest wall. There may be a very tiny apical pneumothorax. In light of the poor chest tube position the chest tube was pulled today. Will check chest x-ray now and later this afternoon. Possible discharge in the afternoon. 05/14/2020-patient admitted with a left pneumothorax status post chest tube pl acement and removal. Developed hematoma today. Follow-up chest x-ray is shows small left apical pneumothorax. [id number] chest x-ray shows trace apical pneumothorax and chest tube was removed yesterday hematoma is resolving patient was assessed by Dr. Cobian and he cleared him to go home. Patient is advised to follow-up with pulmonology in 2 weeks time. (3) Pneumonia Qualifiers: Pneumonia type: due to unspecified organism Laterality: left Is this a current diagnosis for this admission?: Yes Plan: 05/11/2020 Similar presentation to his January admission. Blood cultures were drawn. I have asked for a sputum culture as he has a productive cough. Will receive IV antibiotics. 05/12/2020 A sputum specimen was able to be obtained. Gram stain is pending. This will help identify an offending organism hopefully. CT scan report felt that the patient had atelectasis more than an infiltrate but because he was coughing up suh sputum I will continue the antibiotic therapy pending culture results. 05/13/2020 The patient's last admission he did have a positive sputum culture for strep pneumoniae. This sputum was considered inadequate as it was felt to be more saliva. The patient is very frustrated. He has had pneumonia multiple times over the last year. He states that he has had PFTs with a business services tech in [place]. He was told he has asthma. The patient does not believe that he has asthma. I do not believe he has ever had a bronchoscopy. I suggested he obtain a second opinion. There are business services tech either in [place] permanently or rotating through [place] [facility] for the larger medical facilities. Once stable and discharged he states that he will look for a new business services tech. 05/15/2020-patient is going home on doxycycline 100 mg p.o. twice daily patient is going to follow-up with pulmonology in 2 weeks time. (4) Cough Is this a current diagnosis for this admission?: Yes Plan: 05/11/2020 No coughing fits. We will utilize mucolytic's. Cough suppressants if needed. 05/12/2020 No coughing but improved 05/13/2020 The patient was not coughing yesterday however today he had multiple episodes of a very congested cough. He was not expectorating. We will continue mucolytic's. Some of this might be resolving atelectasis from the pneumothorax. 05/15/2020-patient is complaining of continuous dry calf prescription was given for cough syrup. (5) Lactic acidemia Is this a current diagnosis for this admission?: Yes Plan: 05/11/2020 Secondary to infection. IV fluids and follow-up lactic acid level 05/12/2020 Resolved with IV fluids (6) Hyperglycemia due to type 2 diabetes mellitus Qualifiers: Diabetes mellitus medical terminologist insulin use: without medical terminologist use Qualified Code(s): E11.65 - Type 2 diabetes mellitus with hyperglycemia Is this a current diagnosis for this admission?: Yes Plan: 05/11/2020 He has a prescription for his diabetes but does not take the medicine. We will perform Accu-Cheks and have sliding scale coverage as he will be on steroids. 05/12/2020 Reasonable control with diabetic diet. I will resume patient's metformin. 05/13/2020 Patient is back on metformin. Continue to monitor Accu-Cheks. 05/15/2020-latest blood sugar is 112. Diet exercise weight loss compliance with medications discussed with the patient. (7) Leukocytosis Qualifiers: Leukocytosis type: unspecified Qualified Code(s): D72.829 - Elevated white blood cell count, unspecified Is this a current diagnosis for this admission?: Yes Plan: 05/11/2020 Secondary to infection. Monitor with serial blood tests. Should normalize with antibiotics. 05/12/2020 Improved but not quite normal. Continue antibiotics. Recheck tomorrow. 05/13/2020 White count is now normal. Leukocytosis resolved. 05/15/2020-WBC count is 11,600 leukocytosis is resolving. (8) Hypertension Qualifiers: Hypertension type: essential hypertension Qualified Code(s): I10 - Essential (primary) hypertension Is this a current diagnosis for this admission?: Yes 05/15/2020-blood pressure today is 130/70. Stable. Patient is advised to be compliant with his medications. - Additional Information Resuscitation Status: Full Code Discharge Diet: Diabetic Discharge Activity: Activity As Tolerated Referrals: JAHAIRA ALBERTO MD [ACTIVE STAFF] - NICOLETTE CABELLO PA [NO LOCAL MD] - 05/23/20 11:00 am Prescriptions: Doxycycline Hyclate 100 mg IV BID 5 Days #10 vial Hydrochlorothiazide [Hydrodiuril 12.5 mg Tablet] 12.5 mg PO QAM 30 Days #30 tablet Guaifenesin [Mucinex Sr 600 mg Tablet.sa] 600 mg PO Q12 15 Days #30 tablet.sa Amlodipine Besylate [Norvasc 5 mg Tablet] 5 mg PO DAILY 30 Days #30 tablet Famotidine [Pepcid 20 mg Tablet] 20 mg PO Q12 30 Days #60 tablet Home Medications: Losartan Potassium [Cozaar 100 mg Tablet] 100 mg PO DAILY 08/04/14 Amlodipine Besylate [Norvasc 5 mg Tablet] 5 mg PO DAILY 04/29/17 Gemfibrozil [Lopid 600 mg Tablet] 600 mg PO BID 02/05/20 Montelukast Sodium [Singulair 10 mg Tablet] 10 mg PO QHS 02/05/20 Sildenafil Citrate 100 mg PO PRN PRN 02/05/20 Magnesium Gluconate [Mag-G] 27 mg PO QHS PRN 05/12/20 Melatonin [Melatonin 5 mg Tablet] 20 mg PO QHS 05/12/20 Amlodipine Besylate [Norvasc 5 mg Tablet] 5 mg PO DAILY 30 Days #30 tablet 05/15/20 Doxycycline Hyclate 100 mg IV BID 5 Days #10 vial 05/15/20 Famotidine [Pepcid 20 mg Tablet] 20 mg PO Q12 30 Days #60 tablet 05/15/20 Guaifenesin [Mucinex Sr 600 mg Tablet.sa] 600 mg PO Q12 15 Days #30 tablet.sa 05/15/20 Hydrochlorothiazide [Hydrodiuril 12.5 mg Tablet] 12.5 mg PO QAM 30 Days #30 tablet 05/15/20 Losartan Potassium [Cozaar 50 mg Tablet] 100 mg PO DAILY 30 Days #0 tablet 05/15/20 Metformin HCl [Glucophage 850 mg Tablet] 850 mg PO BID tablet 05/15/20 History of Present Illiness History of Present Illness: ALYSSIA GUTIÉRREZ is a 80 year old male 80 year old male who was admitted by this provider on February 05, 2020. He was discharged on February 07. The patient was admitted for pneumonia at that time. He has a history of diabetes and chronic kidney disease. He has a history of hypertension. He denies COPD but he has been admitted for pneumonia twice in 6 months and it appears that there is an emphysematous bleb on his chest x-ray. Chest CT is pending. Slightly elevated white blood cell count at 13,000. His lactic acid is slightly elevated but under 3.0. He has a productive cough and is exhibiting some increased work of breathing. He was stable enough to drive himself to the hospital. He will be admitted to the hospitalist service. We will give nebulizer treatments, antibiotics and possibly intravenous steroids. We will continue his other medications and treat his comorbidities. Hospital Course Hospital Course: 80 year old male who was admitted by this provider on February 05, 2020. He was discharged on February 07. The patient was admitted for pneumonia at that time. He has a history of diabetes and chronic kidney disease. He has a history of hypertension. He denies COPD but he has been admitted for pneumonia twice in 6 months and it appears that there is an emphysematous bleb on his chest x-ray. Chest CT is pending. Slightly elevated white blood cell count at 13,000. His l actic acid is slightly elevated but under 3.0. He has a productive cough and is exhibiting some increased work of breathing. He was stable enough to drive himself to the hospital. He will be admitted to the hospitalist service. We will give nebulizer treatments, antibiotics and possibly intravenous steroids. We will continue his other medications and treat his comorbidities. 05/14/[id number]-old male admitted with a pneumothorax chest tube was removed today and there is a heavy bleeding and developed a hematoma. Follow-up chest x-ray indicate persistent of the apical pneumothorax. Discharge will be on hold plan is to repeat the labs tomorrow. Patient agreed to stay overnight. 05/15/[id number]-[id number]-old male with history of COPD, not on home oxygen admitted for pneumonia. The cultures are negative. Found to have a left-sided pneumothorax status post chest tube placement and removal yesterday. Discharge plan was on hold until today because of the hematoma formation at the incision site. Today hemoglobin is 15.8 and the hematoma is resolving surgery cleared him for discharge. Follow-up with x-rays indicates a trace apical pneumothorax. Plan is to discharge him home on doxycycline 100 mg p.o. twice daily for 5 days. Requested the patient follow-up with primary care physician next week. Physical Exam Vital Signs: Temp Pulse Resp BP Pulse Ox 98.2 F 71 16 117/62 96 05/15/20 12:35 05/15/20 12:35 05/15/20 12:35 05/15/20 12:35 05/15/20 12:35 Intake & Output 05/14/20 05/15/20 05/16/20 06:59 06:59 06:59 Intake Total 1668 1330 300 Output Total 1300 400 Balance 368 930 300 Weight 97.9 kg 98 kg General appearance: PRESENT: no acute distress, well-developed Head exam: PRESENT: atraumatic Eye exam: PRESENT: PERRLA Mouth exam: PRESENT: moist, tongue midline Teeth exam: PRESENT: poor dentation Neck exam: ABSENT: carotid bruit, JVD, lymphadenopathy, thyromegaly Respiratory exam: PRESENT: decreased breath sounds Cardiovascular exam: PRESENT: RRR. ABSENT: diastolic murmur, rubs, systolic murmur GI/Abdominal exam: PRESENT: normal bowel sounds, soft. ABSENT: distended, guarding, mass, organolmegaly, rebound, tenderness Rectal exam: PRESENT: deferred Extremities exam: PRESENT: full ROM. ABSENT: calf tenderness, clubbing, pedal edema Neurological exam: PRESENT: alert, awake, oriented to person, oriented to place, oriented to time, oriented to situation, CN II-XII grossly intact. ABSENT: motor sensory deficit Skin exam: PRESENT: dry, intact, warm. ABSENT: cyanosis, rash Results Laboratory Results: WBC 11.6 10^3/uL (4.0-10.5) H 05/15/20 06:04 RBC 5.47 10^6/uL (4.35-5.55) 05/15/20 06:04 Hgb 15.8 g/dL (13.5-17.0) 05/15/20 06:04 Hct 46.2 % (37.9-51.0) 05/15/20 06:04 MCV 84 fl (80-97) 05/15/20 06:04 MCH 28.8 pg (27.0-33.4) 05/15/20 06:04 MCHC 34.2 g/dL (32.0-36.0) 05/15/20 06:04 RDW 15.3 % (11.5-14.0) H 05/15/20 06:04 Plt Count 377 10^3/uL (150-450) 05/15/20 06:04 Lymph % (Auto) 22.9 % (13-45) 05/15/20 06:04 Park % (Auto) 12.5 % (3-13) 05/15/20 06:04 Eos % (Auto) 7.7 % (0-6) H 05/15/20 06:04 Baso % (Auto) 0.9 % (0-2) 05/15/20 06:04 Absolute Neuts (auto) 6.5 10^3/uL (1.7-8.2) 05/15/20 06:04 Absolute Lymphs (auto) 2.7 10^3/uL (0.5-4.7) 05/15/20 06:04 Absolute Monos (auto) 1.4 10^3/uL (0.1-1.4) 05/15/20 06:04 Absolute Eos (auto) 0.9 10^3/uL (0.0-0.6) H 05/15/20 06:04 Absolute Basos (auto) 0.1 10^3/uL (0.0-0.2) 05/15/20 06:04 Seg Neutrophils % 56.0 % (42-78) 05/15/20 06:04 PT 12.8 SEC (11.4-15.4) 05/11/20 14:20 INR 0.96 05/11/20 14:20 APTT 32.5 SEC (23.5-35.8) 05/11/20 14:20 Sodium 134.3 mmol/L (137-145) L 05/15/20 06:04 Potassium 4.6 mmol/L (3.6-5.0) 05/15/20 06:04 Chloride 101 mmol/L (98-107) 05/15/20 06:04 Carbon Dioxide 25 mmol/L (22-30) 05/15/20 06:04 Anion Gap 8 (5-19) 05/15/20 06:04 BUN 25 mg/dL (7-20) H 05/15/20 06:04 Creatinine 0.88 mg/dL (0.52-1.25) 05/15/20 06:04 Est GFR ( Amer) > 60 (>60) 05/15/20 06:04 Est GFR (MDRD) Non-Af > 60 (>60) 05/15/20 06:04 Glucose 112 mg/dL (75-110) H 05/15/20 06:04 POC Glucose 115 mg/dL (70-110) H 05/15/20 06:03 Lactic Acid 0.9 mmol/L (0.7-2.1) 05/12/20 04:38 Calcium 10.0 mg/dL (8.4-10.2) 05/15/20 06:04 Magnesium 2.0 mg/dL (1.6-2.3) 05/15/20 06:04 Total Bilirubin 0.5 mg/dL (0.2-1.3) 05/15/20 06:04 Direct Bilirubin 0.0 mg/dL (0.0-0.4) 05/15/20 06:04 Neonat Total Bilirubin Not Reportable 05/15/20 06:04 Neonat Direct Bilirubin Not Reportable 05/15/20 06:04 Neonat Indirect Bili Not Reportable 05/15/20 06:04 AST 23 U/L (17-59) 05/15/20 06:04 ALT 22 U/L (<50) 05/15/20 06:04 Alkaline Phosphatase 67 U/L (38-126) 05/15/20 06:04 Total Protein 7.0 g/dL (6.3-8.2) 05/15/20 06:04 Albumin 4.2 g/dL (3.5-5.0) 05/15/20 06:04 Impressions: Chest X-Ray 05/11/20 00:00 IMPRESSION: Resolution of left pneumothorax status post chest tube placement. The proximal sidehole of the chest tube is at the lateral chest wall. Bibasilar subsegmental atelectasis. Chest X-Ray 05/11/20 15:52 IMPRESSION: Lingular and left lower lobe airspace opacities concerning for pneumonia. Chest CT 05/11/20 17:24 IMPRESSION: 1. Moderate left pneumothorax with atelectasis in the left lower lobe. Findings were called to Dr. Simms on 05/11/2020 at 1916 hours. 2. 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 There is no focal consolidation. 3. Moderate hepatic steatosis. Chest X-Ray 05/13/20 06:00 IMPRESSION: Mild retraction of the large bore left-sided chest tube with proximal side-port external to the thoracic cavity. No appreciable pneumothorax. Chest CT 05/14/20 00:00 IMPRESSION: 1. Mildly complex process in the left lateral chest wall including air and ill-defined soft tissue suggestive of hemorrhagic changes. There is no large well-defined hematoma or drainable fluid collection. 2. Tiny left pneumothorax less than 2%. Additional air inferior to the left heart may be artifact or tiny pneumothorax or pneumomediastinum. 3. Bilateral non prominent lower lobe infiltrates and bronchial wall thickening slightly greater on the left. 4. Borderline 2.9 cm main pulmonary artery. Mildly aneurysmal 4.2 cm ascending aortic aneurysm. Calcifications of the aortic annulus. 5. Mild fatty liver. Chest X-Ray 05/14/20 00:00 IMPRESSION: Left-sided large bore chest tube in place, no pneumothorax. Chest tube side port over the lateral rib margin. Findings discussed with Dr. Goldsmith Chest X-Ray 05/14/20 00:00 IMPRESSION: Status post left hemithorax chest tube removal. Small left apical pneumothorax. Chest X-Ray 05/14/20 16:00 IMPRESSION: Stable small left apical pneumothorax. Chest X-Ray 05/15/20 07:00 IMPRESSION: Trace left apical pneumothorax, smaller than 05/14/2020 1607 hours Plan Plan of Treatment: 05/15/2020-patient is advised to be compliant with medications. He was advised to follow-up with primary care physician next week. Patient is also advised to avoid strenuous activity. Time Spent: Greater than 30 Minutes Stroke Is this a Stroke Patient?: No Acute Heart Failure - Is this a Heart Failure Patient?: No
== END 2020-05-15 13:45 | disposition home or self-care (01) | DRG 199 ==
LOC: ER 14:01 → EH 17:52 → 4S 22:03
PROVIDERS: ADMIT Hospitalist; ATTEND Internal Medicine
PROC: 0W9B30Z Drainage of Left Pleural Cavity with Drainage Device, Percutaneous Approach (ICD-10-PCS; principal; 2020-05-11)
DX: J93.83 Other pneumothorax (principal); J96.01 Acute respiratory failure with hypoxia; J18.9 Pneumonia, unspecified organism; J43.9 Emphysema, unspecified; E11.22 Type 2 diabetes mellitus with diabetic chronic kidney disease; I12.9 Hypertensive chronic kidney disease with stage 1 through stage 4 chronic kidney disease, or unspecified chronic kidney disease; N18.9 Chronic kidney disease, unspecified; E11.65 Type 2 diabetes mellitus with hyperglycemia; F17.210 Nicotine dependence, cigarettes, uncomplicated; Z79.84 Long term (current) use of oral hypoglycemic drugs; Z79.51 Long term (current) use of inhaled steroids; Z79.899 Other long term (current) drug therapy
CPT/HCPCS: 36415; 71045; 71250; 71260; 80048; 80053; 82962; 83605; 83735; 85025; 85027; 85610; 85730; 87040; 87070; 87205; 93005; 93010; 94640; 99285; J0456; J0692; J1650; J1815; J1885; J2250; J3010; J3370; J3490; J7030; J7060; J7620